=== PATIENT | male | born 1960 | race Caucasian/White ===

== ENCOUNTER 2020-11-22 10:14 | Emergency (ER) | payer BC, SELFPAY ==
[2020-11-22 10:21] VITALS: BP 135/80; PULSE 79; TEMP 36.7; O2SAT 100
--- NOTE | 2020-11-22 10:21 | ED.GENADULT ---
HPI - General Adult General Chief complaint: Wound/Laceration Stated complaint: lt hand index finger laceration Time Seen by Provider: 11/22/20 10:22 Source: patient and RN notes reviewed Mode of arrival: ambulatory Limitations: no limitations History of Present Illness HPI narrative: 60-year-old male presents with complaints of laceration to index (second) finger on left hand, caused by veneer trimmer prior to arrival. Juan C reports outside doing yard work prior to arrive, cut finger causing laceration. Applied dressing and pressure to control bleeding with some relief. Denies focal weakness or altered sensation. Denies pain, numbness or tingling, or loss of mobility. No foreign body sensation. RIGHT HAND dominant hand. No fever. No nausea or vomiting and abdominal pain. Tolerating po intake well. Tetanus up-to-date. The patient reports he have not been diagnosed with COVID-19. The patient reports he is not waiting for the results of a COVID-19 lab test. The patient reports he do not have chills, weakness, or fatigue. The patient reports he do not have a new or worsening cough or shortness of breath. Denies chest pain. The patient reports he do not have any rhinorrhea, congestion, loss of taste or smell, sore throat, and diarrhea. Denies recent traveling. Denies concerns for COVID-19 or exposures been home with limited outdoor exposure except for essential household needs and return home. At this time, patient is not suspected of having COVID-19. Some parts of this dictation were generated by voice recognition software and may contain typographical and/or grammatical inaccuracies Related Data Home Medications Medication Instructions Recorded Confirmed aspirin 81 mg tablet,delayed 81 mg PO DAILY 01/13/20 11/22/20 release multivitamin 1 tablet PO DAILY 01/13/20 11/22/20 omega 8-zmo-ncw-fish oil 100 100 cap PO DAILY 01/13/20 11/22/20 mg-160 mg-1,000 mg capsule empagliflozin [Jardiance] 10 mg PO DAILY 11/22/20 11/22/20 linagliptin [Tradjenta] 5 mg PO DAILY 11/22/20 11/22/20 Allergies Allergy/AdvReac Type Severity Reaction Status Date / Time atorvastatin [From Lipitor] AdvReac Unknown Muscle Pain Verified 11/22/20 10:30 Review of Systems Review of Systems: Narrative: CONSTITUTIONAL: Denies fever, chills, sweats. EYES: Denies visual changes, redness, discharge. ENT: Denies rhinorrhea, congestion, sore throat, otalgia. CARDIOVASCULAR: Denies chest pain, palpitations, edema. RESPIRATORY: Denies dyspnea, wheezing, cough. GASTROINTESTINAL: Denies abdominal pain, nausea, vomiting, or diarrhea. SKIN: Denies rash or itching. Complains of laceration to index (second) finger on left hand. MUSCULOSKELETAL: Denies acute back pain, joint pain, or myalgia. NEUROLOGIC: Denies numbness or focal weakness. PSYCHIATRIC: Denies anxiety or depression. All other systems reviewed & are unremarkable except as noted in HPI and below. [facility] Past Medical History Medical History Arthritis Diabetes Hyperlipemia Surgical History Surgical History Hx of appendectomy Family History Family History Father Heart disease Diabetes mellitus Parkinsons disease Mother Dementia Social History Social History (Updated 11/22/20 @ 11:16 by KALYANI Wyatt) Smoking status: Never smoker Tobacco type: cigarettes Second hand tobacco smoke exposure: No Alcohol intake: former Substance use: never Substance use type: does not use Living arrangements: with family Additional living arrangements comments: spouse Occupation/Education: retired Gender identity (if verbalized by the patient): Male Sexual Orientation (if Verbalized by the Patient): Straight or Heterosexual Comments At time of signature, agree with nurse past medical,
[2020-11-22 10:34] VITALS: BP 135/80; PULSE 79; TEMP 36.7; O2SAT 100
== END 2020-11-22 11:02 | disposition home or self-care (01) ==
PROVIDERS: Emergency Provider Nurse Practitioner Family; PCP Internal Medicine
DX: S61.211A Laceration without foreign body of left index finger without damage to nail, initial encounter (principal); W29.3XXA Contact with powered garden and outdoor hand tools and machinery, initial encounter; Y93.H9 Activity, other involving exterior property and land maintenance, building and construction; E11.9 Type 2 diabetes mellitus without complications; E78.5 Hyperlipidemia, unspecified; M19.90 Unspecified osteoarthritis, unspecified site; Z79.82 Long term (current) use of aspirin
CPT/HCPCS: 12001; 99213; G0463

== ENCOUNTER 2021-11-07 20:37 | Emergency (ER) | payer BC, SELFPAY ==
[2021-11-07 20:40] VITALS: BP 163/98; PULSE 81; RESP 20; TEMP 36.7; O2SAT 100
--- NOTE | 2021-11-07 22:36 | PC.NURSE ---
pt aox3 states I am going to call my doctor in the am .
== END 2021-11-07 22:36 | disposition left against medical advice (07) ==
LOC: ANHED 22:43
PROVIDERS: PCP Internal Medicine
DX: M54.50 Low back pain, unspecified (principal)
CPT/HCPCS: 99199

== ENCOUNTER 2021-11-08 10:03 | Emergency (ER) | payer BC, SELFPAY ==
[2021-11-08 10:07] VITALS: BP 148/84; PULSE 94; RESP 16; TEMP 36.6; O2SAT 99
--- NOTE | 2021-11-08 10:08 | ED.BACK ---
HPI - Back Pain/Injury General Chief Complaint: Back Pain/Injury Stated Complaint: BACK PAIN Time Seen by Provider: 11/08/21 10:09 Source: patient Mode of arrival: ambulatory Limitations: no limitations History of Present Illness HPI Narrative: 61 yo M presents with c/o low back pain, worse to L side. Pain started yesterday while working on hardwood floors. Is remodeling a old house doing carpentry, plumbing, electrical. ambulatory with steady gait. has been taking ibuprofen for pain. States he is not able to get comfortable sitting or laying. no radiation of pain to legs. no weaknes or numbness to LEs. No loss of bowel or bladder. denies injury. All systems reviewed and negative except as noted above. Related Data Home Medications Medication Instructions Recorded Confirmed aspirin 81 mg tablet,delayed 81 mg PO DAILY 01/13/20 10/31/21 release multivitamin 1 tablet PO DAILY 01/13/20 10/31/21 omega 5-ktm-udw-fish oil 100 100 cap PO DAILY 01/13/20 10/31/21 mg-160 mg-1,000 mg capsule ibuprofen 200 mg capsule 200 mg PO Q6H PRN 10/31/21 10/31/21 Allergies Allergy/AdvReac Type Severity Reaction Status Date / Time atorvastatin [From Lipitor] AdvReac Unknown Muscle Pain Verified 11/07/21 20:44 Review of Systems Review of Systems: CONSTITUTIONAL: Denies fever, chills, or sweats. EYES: Denies visual changes, redness, or discharge. ENT: Denies rhinorrhea, congestion, sore throat, or otalgia. CARDIOVASCULAR: Denies chest pain, palpitations, or edema. RESPIRATORY: Denies cough or dyspnea. GASTROINTESTINAL: Denies abdominal pain, nausea, vomiting, or diarrhea. GENITOURINARY: Denies dysuria or hematuria. SKIN: Denies rash or itching. MUSCULOSKELETAL: Reports back pain. denies joint pain, or myalgia. NEUROLOGIC: Denies headache, numbness, or weakness. PSYCHIATRIC: Denies anxiety or depression. All other systems reviewed are negative, except as documented in HPI. [facility] Past Medical History Medical History Arthritis Diabetes Hyperlipemia Surgical History Surgical History Hx of appendectomy Family History Family History Father Heart disease Diabetes mellitus Parkinsons disease Mother Dementia Social History Social History Smoking status: Never smoker Tobacco type: cigarettes Second hand tobacco smoke exposure: No Alcohol intake: former Substance use: never Substance use type: does not use Additional living arrangements comments: spouse Gender identity (if verbalized by the patient): Male Sexual Orientation (if Verbalized by the Patient): Straight or Heterosexual Comments At time of signature, agree with nursing past medical, surgical, social and family history. There is no relevant family history pertinent to the presenting complaint. Exam Narrative: GENERAL: Well-appearing, well-nourished, and in no acute distress. HEAD: Normocephalic, atraumatic. EYES: PERRLA and EOMI. NECK: Supple. No lymphadenopathy. CHEST: Clear to auscultation. No respiratory distress. HEART: Regular rate and rhythm. Distal pulses palpable and equal, cap refill <3 seconds ABDOMEN: Soft, nontender, nondistended, normal active bowel sounds, no palpable or pulsatile masses. No CVA tenderness MUSCULOSKELETAL: Decreased flexion otherwise normal range of motion. strength in all extremities; 5/5 strength with hip flexion and extension, dorsiflexion and extension, knee flexion and extension, plantar flexion and extension. Normal sensation in dermatomal distributions with sensitivity to light touch and pain. Lumbar midline back tenderness to palpation. Bilateral paraspinal tenderness. Transfers from lying to sitting to standing. SKIN: Warm, dry, no rash. No ecchymosis, erythema, open wounds to back. NEURO: No fo
[2021-11-08] MEDS: KETOROLAC 30 MG/ML VIAL (*BKC) IM (10:34)
== END 2021-11-08 10:55 | disposition home or self-care (01) ==
PROVIDERS: Emergency Provider Nurse Practitioner Family; PCP Internal Medicine
DX: S39.012A Strain of muscle, fascia and tendon of lower back, initial encounter (principal); X58.XXXA Exposure to other specified factors, initial encounter; M19.90 Unspecified osteoarthritis, unspecified site; E11.9 Type 2 diabetes mellitus without complications; E78.5 Hyperlipidemia, unspecified
CPT/HCPCS: 96372; 99213; G0463; J1885

== ENCOUNTER 2022-10-27 08:31 | Outpatient (CLI) | payer BC, SELFPAY ==
[2022-10-27 19:46] LABS: Basophils Absolute Auto 0.1 K/mm3 (0.0-0.1); Basophils Percent Auto 0.9 % (0.2-1.2); Eosinophils Absolute Auto 0.1 K/mm3 (0-0.3); Eosinophils Percent Auto 1.3 % (0-4.4); Hematocrit 46.6 % (42.0-52.0); Hemoglobin 15.1 g/dL (14.0-18.0); Immature Granulocyte Absolute 0.01 K/mm3 (0.00-0.031); Immature Granulocyte Percent A 0.2 % (0-0.5); Lymphocytes Absolute Auto 1.71 K/mm3 (0.9-3.2); Lymphocytes Percent Auto 31.1 % (18.3-44.2); Mean Corpuscular HGB Conc 32.4 g/dl (32-36); Mean Corpuscular Volume 86.3 fl (80-100); Mean Platelet Volume 9.6 fl (7.4-10.4); Monocytes Absolute Auto 0.3 K/mm3 (0.1-0.6); Neutrophils Absolute Auto 3.3 K/mm3 (1.3-6.7); Neutrophils Percent Auto 60.5 % (45.5-73.1); Platelet Count Result 273 k/mm3 (150-375); Red Cell Distribution Width 13.5 % (11.5-14.5); White Blood Count 5.5 K/mm3 (4.5-10.0)
[2022-10-27 19:48] LABS: Alanine Aminotransferase 27 U/L (6-50); Albumin Level 4.9 g/dL (3.5-5.1); Alkaline Phosphatase 56 U/L (38-126); Anion Gap 9 mmol/L (8-16); Aspartate Amino Transferase 31 U/L (17-59); Bilirubin,Total 0.8 mg/dL (0.2-1.3); Blood Urea Nitrogen 21 mg/dL (9-20); Calcium 9.2 mg/dL (8.4-10.2); Carbon Dioxide 29 mmol/L (22-30); Chloride 100 mmol/L (98-107); Cholesterol 126 mg/dL (0-200); Estimated Glomerular Filt Rate > 60; Glucose 115 mg/dL (65-110); HDL Direct 33 mg/dL; Potassium 4.4 mmol/L (3.4-5.0); Sodium 138 mmol/L (137-145); Triglycerides 135 mg/dL (<150)
[2022-10-27 19:54] LABS: Hemoglobin A1C 6.9 % (<5.7)
[2022-10-27 19:59] LABS: LDL Cholesterol Direct 63 mg/dL
[2022-10-27 20:19] LABS: Prostate Specific Antigen 0.7 ng/mL (< OR = 4.0)
[2022-10-27 20:33] LABS: Creatinine Urine 115.5 mg/dL
[2022-10-27 20:38] LABS: MALB Creatinine Ratio 7.4 mg/g (0-30); Microalbumin Urine Random 8.5 mg/L (0-16.7)
== END 2022-10-27 08:32 | disposition home or self-care (01) ==
LOC: ANHGOSHLAB 08:32
PROVIDERS: PCP Internal Medicine; Visit Provider Internal Medicine
DX: E11.9 Type 2 diabetes mellitus without complications (principal); Z12.5 Encounter for screening for malignant neoplasm of prostate
CPT/HCPCS: 36415; 80053; 80061; 82043; 83036; 84153; 85025; G0103

== ENCOUNTER 2022-11-15 10:41 | Outpatient (CLI) | payer BC, SELFPAY | END 2022-11-15 10:42 | disposition home or self-care (01) | LOC: ANHAUDASC 10:42 | PROVIDERS: PCP Internal Medicine; Visit Provider Internal Medicine | DX: H90.3 Sensorineural hearing loss, bilateral (principal) | CPT/HCPCS: 92557; 92567 ==

== ENCOUNTER 2023-04-30 08:01 | Outpatient (CLI) | payer BC, SELFPAY ==
[2023-04-30 13:27] LABS: Anion Gap 9 mmol/L (8-16); Blood Urea Nitrogen 18 mg/dL (9-20); Calcium 9.3 mg/dL (8.4-10.2); Carbon Dioxide 28 mmol/L (22-30); Chloride 100 mmol/L (98-107); Estimated Glomerular Filt Rate > 60; Glucose 116 mg/dL (65-110); Potassium 4.4 mmol/L (3.4-5.0); Sodium 137 mmol/L (137-145)
== END 2023-04-30 08:02 | disposition home or self-care (01) ==
PROVIDERS: PCP Internal Medicine; Visit Provider Internal Medicine
DX: E11.9 Type 2 diabetes mellitus without complications (principal)
CPT/HCPCS: 36415; 80048; 83036

== ENCOUNTER 2023-07-31 09:33 | Outpatient (CLI) | payer BC, SELFPAY ==
[2023-07-31 18:43] LABS: Hematocrit 47.2 % (42.0-52.0); Hemoglobin 15.2 g/dL (14.0-18.0); Mean Corpuscular HGB Conc 32.2 g/dl (32-36); Mean Corpuscular Hemoglobin 28.2 pg (26-34); Mean Corpuscular Volume 87.6 fl (80-100); Mean Platelet Volume 9.6 fl (7.4-10.4); Platelet Count Result 281 k/mm3 (150-375); Red Blood Count 5.39 M/mm3 (4.6-6.20); Red Cell Distribution Width 14.4 % (11.5-14.5); White Blood Count 6.1 K/mm3 (4.5-10.0)
[2023-07-31 19:47] LABS: Hemoglobin A1C 6.9 % (<5.7)
== END 2023-07-31 09:34 | disposition home or self-care (01) ==
LOC: ANHGOSHLAB 09:35
PROVIDERS: PCP Internal Medicine; Visit Provider Clinical Nurse Specialist
DX: E11.9 Type 2 diabetes mellitus without complications (principal)
CPT/HCPCS: 36415; 83036; 85027

== ENCOUNTER 2023-11-12 09:32 | Emergency (ER) | payer BC, SELFPAY ==
[2023-11-12 10:13] VITALS: BP 127/84; PULSE 92; RESP 16; TEMP 36.4; O2SAT 98
--- NOTE | 2023-11-12 10:52 | ED.BACK ---
HPI - Back Pain/Injury General Chief Complaint: Extremity Injury, Lower Stated Complaint: Right Hip pain Time Seen by Provider: 11/12/23 10:37 Source: patient, family () and RN notes reviewed Mode of arrival: ambulatory Limitations: no limitations History of Present Illness HPI Narrative: Patient presents today complaining of a 6 day history of pain to the right lower back extending to the right thigh. Denies numbness or tingling in the leg or genitalia. Denies loss of bowel or bladder control. Currently rates his pain at rest 3/10, which increases with standing or ambulation. He has been taking ibuprofen with some short-term relief. Denies any known injury or trauma, but has been working in his home renovating it. Woke up with the pain after lifting some heavy doors at home. Related Data Home Medications Medication Instructions Recorded Confirmed aspirin 81 mg tablet,delayed 81 mg PO DAILY 01/13/20 11/12/23 release (Adult Low Dose Aspirin) multivitamin 1 tablet PO DAILY 01/13/20 11/12/23 omega 5-xnz-wgu-fish oil 100 100 cap PO DAILY 01/13/20 11/12/23 mg-160 mg-1,000 mg capsule (Fish Oil) ibuprofen 200 mg capsule 200 mg PO Q6H PRN Pain 10/31/21 11/12/23 Allergies Allergy/AdvReac Type Severity Reaction Status Date / Time atorvastatin [From Lipitor] AdvReac Unknown Muscle Pain Verified 11/12/23 10:09 Review of Systems Review of Systems: CONSTITUTIONAL: Denies body aches, fever, chills, or sweats. EYES: Denies visual changes, redness, or discharge. ENT: Denies rhinorrhea, congestion, sore throat, or otalgia. CARDIOVASCULAR: Denies chest pain, palpitations, or edema. RESPIRATORY: Denies cough or dyspnea. GASTROINTESTINAL: Denies abdominal pain, nausea, vomiting, or diarrhea. GENITOURINARY: Denies dysuria or hematuria. SKIN: Denies rash, itching, or wounds. MUSCULOSKELETAL: Denies joint pain, or myalgia.+ back pain NEUROLOGIC: Denies headache, numbness, tingling, or weakness. PSYCH: Denies depression or anxiety. COUNT INCLUDES [facility] Past Medical History Medical History Arthritis Diabetes Hyperlipemia Surgical History Surgical History Hx of appendectomy Family History Family History Father Heart disease Diabetes mellitus Parkinsons disease Mother Dementia Social History Social History Smoking status: Never smoker Tobacco type: cigarettes Second hand tobacco smoke exposure: No Alcohol intake: former Substance use: never Substance use type: does not use Lack of Transportation: No Lack of Food: Never True Current Housing: I Have Housing Concerned About Future Housing: No Difficulty Paying Gas/Electric Bills: No Difficulty Paying for Meds: No Currently Unemployed: Decline to Answer Education: Trade/Vocational Certificate Difficulty w/ Childcare or Family Care: No Living arrangements: with family Additional living arrangements comments: spouse Occupation/Education: retired Gender identity (if verbalized by the patient): Male Sexual Orientation (if Verbalized by the Patient): Straight or Heterosexual Comments At time of signature, I have reviewed and agree with nursing past medical, surgical, social and family history unless otherwise noted. Please see nursing chart for further information. There is no relevant family history pertinent to the presenting complaint Exam Narrative: GENERAL: Well-appearing, well-nourished, and in no acute distress. HEAD: Normocephalic, atraumatic. EYES: EOMI. No redness or drainage. Conjunctivae normal. ENT: Mucous membranes pink and moist. NECK: Normal AROM. CHEST: No respiratory distress. MUSCULOSKELETAL: No bony tenderness of the spine. Tenderness to the right lower lumbar
== END 2023-11-12 11:02 | disposition home or self-care (01) ==
PROVIDERS: Emergency Provider Nurse Practitioner; PCP Internal Medicine
DX: M54.41 Lumbago with sciatica, right side (principal); M19.90 Unspecified osteoarthritis, unspecified site; E11.9 Type 2 diabetes mellitus without complications; E78.5 Hyperlipidemia, unspecified; Z79.82 Long term (current) use of aspirin
CPT/HCPCS: 99213; G0463

== ENCOUNTER 2023-11-17 19:48 | Emergency (ER) | payer BC, SELFPAY ==
--- NOTE | ~2023-11-17 | XR_ITS ---
EXAM: XR knee RT min 4V DATE: 11/17/2023 20:08 HISTORY: pain . COMPARISON: None available. FINDINGS: Normal mineralization. No fracture or dislocation. No lytic or blastic lesion. Mild degene rative change in the medial and patellofemoral compartments. No erosion or periosteal change. Atheros clerotic vascular calcifications. IMPRESSION: No acute osseous finding in the right knee. Reviewed, dictated and finalized at location K. AIGN MARKETING MANAGER
--- NOTE | ~2023-11-17 | XR_ITS ---
EXAM: XR hip RT 2V w AP pelvis DATE: 11/17/2023 20:08 HISTORY: pain . COMPARISON: None available. FINDINGS: Normal mineralization. No fracture or dislocation. No lytic or blastic lesion. Mild bilate ral hip osteoarthritis and pelvic enthesopathy. No erosion or periosteal change. Soft tissues within normal limits. IMPRESSION: No acute osseous finding in the pelvis or right hip. Reviewed, dictated and finalized at location K. CE DETENTION ATTENDANT
[2023-11-17 19:48] VITALS: BP 130/76; PULSE 98; RESP 18; TEMP 36.4; O2SAT 100
--- NOTE | 2023-11-17 20:33 | ED.GENADULT ---
HPI - General Adult General Chief complaint: Extremity Problem,Nontraumatic Stated complaint: R hip/R knee pain Time Seen by Provider: 11/17/23 20:30 Source: patient Mode of arrival: ambulatory Limitations: no limitations History of Present Illness HPI narrative: This is a 63-year-old male who presents to the ED with chief complaint of nearly 2 weeks of right hip and knee pain. Patient states that he had been working around the house a lot prior to this onset. No specific trauma. Pain seems to be radiating from the right low back to the outside of the right hip and right knee. He had been seen previously in urgent care thought he may have some sciatica. He has been taking Flexeril, steroids and ibuprofen with mild relief but today the pain got worse. Denies numbness, weakness, bladder or bowel dysfunction, saddle anesthesia, fevers, chills. Related Data Home Medications Medication Instructions Recorded Confirmed aspirin 81 mg tablet,delayed 81 mg PO DAILY 01/13/20 11/12/23 release (Adult Low Dose Aspirin) multivitamin 1 tablet PO DAILY 01/13/20 11/12/23 omega 4-avy-bdo-fish oil 100 100 cap PO DAILY 01/13/20 11/12/23 mg-160 mg-1,000 mg capsule (Fish Oil) ibuprofen 200 mg capsule 200 mg PO Q6H PRN Pain 10/31/21 11/12/23 Allergies Allergy/AdvReac Type Severity Reaction Status Date / Time atorvastatin [From Lipitor] AdvReac Unknown Muscle Pain Verified 11/12/23 10:09 Review of Systems Review of Systems: All systems as dictated in HPI [facility] Past Medical History Medical History Arthritis Diabetes Hyperlipemia Surgical History Surgical History Hx of appendectomy Family History Family History Father Heart disease Diabetes mellitus Parkinsons disease Mother Dementia Social History Social History Smoking status: Never smoker Tobacco type: cigarettes Second hand tobacco smoke exposure: No Alcohol intake: former Substance use: never Substance use type: does not use Lack of Transportation: No Lack of Food: Never True Current Housing: I Have Housing Concerned About Future Housing: No Difficulty Paying Gas/Electric Bills: No Difficulty Paying for Meds: No Currently Unemployed: Decline to Answer Education: Trade/Vocational Certificate Difficulty w/ Childcare or Family Care: No Living arrangements: with family Additional living arrangements comments: spouse Occupation/Education: retired Gender identity (if verbalized by the patient): Male Sexual Orientation (if Verbalized by the Patient): Straight or Heterosexual Exam Narrative: GENERAL: Well-appearing, well-nourished, and in no acute distress. HEAD: Normocephalic, atraumatic. EYES: PERRLA and EOMI. ENT: Nares clear, no rhinorrhea or epistaxis. Mucous membranes moist. Oropharynx without tonsillar hypertrophy exudate or other lesions. NECK: Supple. No adenopathy or masses. CHEST: No respiratory distress. Clear to auscultation. No wheezes rales or rhonchi HEART: Regular rate and rhythm. No murmur heard. Normal peripheral pulses. ABDOMEN: Soft, nontender, nondistended, normal active bowel sounds. MSK: No midline spinal tenderness. Straight leg raise positive on the right. Ambulatory. normal range of motion. No edema. SKIN: Warm, dry, no rash. NEURO: Alert and oriented x3. No focal deficits. No saddle anesthesia. 5 out of 5 strength and sensation in the upper and lower extremities. PSYCH: Normal mood and affect. Course Vital Signs Vital signs: Vital Signs Temperature 97.5 F L 11/17/23 19:48 Pulse Rate 98 11/17/23 19:48 Respiratory Rate 18 11/17/23 19:48 Blood Pressure 130/76 11/17/23 19:48 Pulse Oximetry 100 11/17/23 19:48 Oxygen D
[2023-11-17] MEDS: ACETAMINOPHEN 500 MG TABLET 1000 MG PO (20:56)
[2023-11-17] MEDS: ORPHENADRINE CITRATE 100 MG TABLET.ER PO (20:57)
[2023-11-17] MEDS: KETOROLAC 30 MG/ML VIAL (*BKC) IM (20:57)
[2023-11-17 21:32] VITALS: BP 142/76; PULSE 82; RESP 15; O2SAT 100
== END 2023-11-17 21:33 | disposition home or self-care (01) ==
PROVIDERS: Emergency Provider Physician Assistant; PCP Internal Medicine
DX: M54.16 Radiculopathy, lumbar region (principal); E11.9 Type 2 diabetes mellitus without complications; E78.5 Hyperlipidemia, unspecified; M19.90 Unspecified osteoarthritis, unspecified site; Z79.82 Long term (current) use of aspirin; Z79.84 Long term (current) use of oral hypoglycemic drugs
CPT/HCPCS: 73502; 73564; 96372; 99284; A9270; J1885

== ENCOUNTER 2023-12-04 08:01 | Outpatient (CLI) | payer BC, SELFPAY ==
[2023-12-04 14:00] LABS: Creatinine Urine 93.4 mg/dL
[2023-12-04 14:06] LABS: MALB Creatinine Ratio 26.8 mg/g (0-30)
[2023-12-04 14:39] LABS: Cholesterol 150 mg/dL (0-200); HDL Direct 38 mg/dL; Triglycerides 108 mg/dL (<150)
[2023-12-04 14:44] LABS: Alanine Aminotransferase 26 U/L (6-50); Albumin Level 4.5 g/dL (3.5-5.1); Alkaline Phosphatase 76 U/L (38-126); Anion Gap 10 mmol/L (8-16); Aspartate Amino Transferase 43 U/L (17-59); Bilirubin,Total 0.4 mg/dL (0.2-1.3); Blood Urea Nitrogen 26 mg/dL (9-20); Calcium 9.6 mg/dL (8.4-10.2); Carbon Dioxide 25 mmol/L (22-30); Chloride 103 mmol/L (98-107); Estimated Glomerular Filt Rate > 60; Glucose 170 mg/dL (65-110); Potassium 4.4 mmol/L (3.4-5.0); Sodium 138 mmol/L (137-145)
[2023-12-04 14:49] LABS: LDL Cholesterol Direct 87 mg/dL
[2023-12-04 15:10] LABS: Prostate Specific Antigen 0.7 ng/mL (< OR = 4.0)
[2023-12-04 16:33] LABS: Hemoglobin A1C 8.1 % (<5.7)
== END 2023-12-04 08:02 | disposition home or self-care (01) ==
LOC: ANHGOSHLAB 08:03
PROVIDERS: PCP Internal Medicine; Visit Provider Clinical Nurse Specialist
DX: E11.65 Type 2 diabetes mellitus with hyperglycemia (principal); Z12.5 Encounter for screening for malignant neoplasm of prostate; E78.5 Hyperlipidemia, unspecified
CPT/HCPCS: 36415; 80053; 80061; 82043; 82607; 83036; 84153; G0103

== ENCOUNTER 2024-04-09 08:13 | Outpatient (CLI) | payer BC, SELFPAY ==
[2024-04-09 19:21] LABS: Basophils Percent Auto 0.4 % (0.2-1.2); Eosinophils Absolute Auto 0.2 K/mm3 (0-0.3); Eosinophils Percent Auto 2.3 % (0-4.4); Hematocrit 43.6 % (42.0-52.0); Hemoglobin 13.1 g/dL (14.0-18.0); Immature Granulocyte Absolute 0.04 K/mm3 (0.00-0.031); Immature Granulocyte Percent A 0.4 % (0-0.5); Lymphocytes Absolute Auto 1.07 K/mm3 (0.9-3.2); Lymphocytes Percent Auto 10.6 % (18.3-44.2); Mean Corpuscular Hemoglobin 25.7 pg (26-34); Mean Corpuscular Volume 85.7 fl (80-100); Mean Platelet Volume 9.8 fl (7.4-10.4); Monocytes Absolute Auto 1.4 K/mm3 (0.1-0.6); Monocytes Percent Auto 13.9 % (2.6-8.5); Neutrophils Absolute Auto 7.3 K/mm3 (1.3-6.7); Neutrophils Percent Auto 72.4 % (45.5-73.1); Platelet Count Result 326 k/mm3 (150-375); Red Blood Count 5.09 M/mm3 (4.6-6.20); Red Cell Distribution Width 13.8 % (11.5-14.5); White Blood Count 10.1 K/mm3 (4.5-10.0)
[2024-04-09 19:31] LABS: Alanine Aminotransferase 79 U/L (6-50); Albumin Level 3.6 g/dL (3.5-5.1); Alkaline Phosphatase 146 U/L (38-126); Anion Gap 13 mmol/L (4-12); Aspartate Amino Transferase 115 U/L (17-59); Bilirubin,Total 0.6 mg/dL (0.2-1.3); Blood Urea Nitrogen 19 mg/dL (9-20); Carbon Dioxide 26 mmol/L (22-30); Chloride 95 mmol/L (98-107); Cholesterol 91 mg/dL (0-200); Estimated Glomerular Filt Rate > 60; Glucose 91 mg/dL (65-110); HDL Direct 20 mg/dL; Sodium 134 mmol/L (137-145); Triglycerides 80 mg/dL (<150)
[2024-04-09 19:42] LABS: LDL Cholesterol Direct 49 mg/dL
[2024-04-09 20:23] LABS: Vitamin B12 > 1000.0 pg/mL (239-931)
[2024-04-09 20:39] LABS: Hemoglobin A1C 7.4 % (<5.7)
[2024-04-09 20:47] LABS: Creatinine Urine 175.2 mg/dL
[2024-04-09 20:50] LABS: MALB Creatinine Ratio 84.2 mg/g (0-30); Microalbumin Urine Random 147.6 mg/L (0-16.7)
== END 2024-04-09 08:14 | disposition home or self-care (01) ==
LOC: ANHGOSHLAB 08:15
PROVIDERS: PCP Internal Medicine; Visit Provider Internal Medicine
DX: E11.65 Type 2 diabetes mellitus with hyperglycemia (principal)
CPT/HCPCS: 36415; 80053; 80061; 82043; 82565; 82607; 83036; 85025

== ENCOUNTER 2024-04-15 09:27 | Inpatient (IN) | payer BC, MEDICARE, SELFPAY ==
[2024-04-15] VITALS (32 sets, daily range): BP systolic 121–150; BP diastolic 72–113; PULSE 90–106; RESP 18–35; TEMP 36.4–37.3; O2SAT 95–100
--- NOTE | ~2024-04-15 | US_ITS ---
EXAMINATION: US venous doppler [facility] DATE: 04/16/2024 11:13 INDICATION: Chest pain. TECHNIQUE: Grayscale ultrasound images without and with compression and Doppler ultrasound images of the bilateral lower extremity veins were obtained. COMPARISON: None. FINDINGS: The visualized portions of right common femoral vein, profunda (deep) femoral vein, femoral vein, pop liteal vein, peroneal veins, posterior tibial veins, and greater saphenous vein outflow are patent. The visualized portions of left common femoral vein, profunda femoral vein, femoral vein, popliteal v ein, peroneal veins, posterior tibial veins, and greater saphenous vein outflow are patent. IMPRESSION: 1. No deep venous thrombosis. Reviewed, dictated and finalized at location A.
--- NOTE | ~2024-04-15 | US_ITS ---
EXAMINATION: US abdomen duplex complete DATE: 04/19/2024 08:46 INDICATION: Abdominal distention. Hypotension. Lower extremity edema. TECHNIQUE: Multiple grayscale and color and pulsed Doppler ultrasound images of the abdomen were obta ined. COMPARISON: CT abdomen and pelvis 04/15/2024 FINDINGS: There are innumerable hypoechoic masses in the liver, consistent with metastatic disease. T here is normal flow in the proper hepatic artery, main portal vein, right and left portal veins, and the hepatic veins. Review of the CT demonstrates portal vein thrombosis in segment V of the liver. Th ere is normal flow in splenic artery and splenic vein. Abdominal aorta is normal in caliber. There is a small volume of ascites. IMPRESSION: 1. Innumerable liver masses, consistent with metastatic disease. 2. Portal vein thrombosis in segment V of the liver. Reviewed, dictated and finalized at location A.
--- NOTE | ~2024-04-15 | CT_ITS ---
EXAMINATION: CTA chest PE abdomen pel DATE: 04/15/2024 11:50 INDICATION: Right chest pain. Right upper quadrant abdominal pain. TECHNIQUE: Computed tomography angiography (CTA) of the chest was performed with 100 mL Omnipaque-350 intravenous contrast timed to evaluate the pulmonary arteries. Coronal maximum intensity projection 3D-reconstructions were created by the technologist. Computed tomography (CT) of the abdomen and pelv is was performed with intravenous contrast. Automated exposure control and iterative reconstruction t echnique were employed. The dose-length product was 1243.31 mGy-cm. COMPARISON: None. FINDINGS: CTA chest: The lung volumes are small. The lungs demonstrate mild atelectasis. There are few nodules in the lungs measuring up to 3 mm. No pleural effusion. The heart size is normal. There are coronary artery calcifications. No pericardial effusion. There is no pulmonary embolus. There is mild mediasti nal lymphadenopathy. There is no pulmonary embolus. There is a chronic compression fracture of T11. T here is mild thoracic spondylosis. CT abdomen and pelvis: There are greater than 20 low attenuation masses in the liver measuring up to 14.2 cm. The gallbladder is normal. There is an infarct in the spleen. There is a 4.4 cm hypodense ma ss in the tail of the pancreas. The adrenal glands are normal. There are cysts in the kidneys measuri ng up to 14 mm on the right. There is a right inguinal hernia containing fat. There is diverticulosis of the colon without evidence of diverticulitis. The appendix is not visualized. There is mild perip ortal lymphadenopathy. There is a small volume of ascites. There is mild lumbar spondylosis. IMPRESSION: 1. 4.4 cm pancreatic mass, consistent with primary adenocarcinoma. 2. Greater than 20 liver masses, consistent with metastatic disease. 3. Small pulmonary nodules and mild mediastinal lymphadenopathy, which may be benign or metastatic di sease. 4. Small volume of ascites. 5. Splenic infarct. 6. No pulmonary embolus. Reviewed, dictated and finalized at location A. IMPRESSION: 1. 4.4 cm pancreatic mass, consistent with primary adenocarcinoma. 2. Greater than 20 liver masses, consistent with metastatic disease. 3. Small pulmonary nodules and mild mediastinal lymphadenopathy, which may be b enign or metastatic disease. 4. Small volume of ascites. 5. Splenic infarct. 6. No pulmonary embolus.
--- NOTE | ~2024-04-15 | XR_ITS ---
EXAMINATION: XR fl guide central line place DATE: 04/21/2024 12:58 INDICATION: Port placement. TECHNIQUE: A single intraoperative fluoroscopic view of the chest was obtained. I was not present. Fl uoroscopy time was 319 seconds. COMPARISON: Chest CT 04/15/2024 FINDINGS: There is a right internal jugular port with tip at superior cavoatrial junction. IMPRESSION: 1. Port tip at superior cavoatrial junction. Reviewed, dictated and finalized at location A.
--- NOTE | ~2024-04-15 | US_ITS ---
EXAMINATION: US bx liver DATE: 04/16/2024 11:43 INDICATION: Liver mass. TECHNIQUE: The procedure including the risks, benefits, and alternatives was discussed with the patie nt. Risks discussed included bleeding and infection. The patient understood the risks and agreed to p roceed. The skin overlying the left hepatic lobe was prepped and draped in usual sterile fashion. An esthetic was administered with 1% lidocaine subcutaneously. An 18 gauge core biopsy needle was then used to obtain 3 core biopsy specimens under continuous sonographic guidance. The entry site was kwaku liseth and dressed. There were no immediate complications. FINDINGS: Ultrasound images demonstrate the needle in a 2.6 cm hypoechoic mass in left hepatic lobe. IMPRESSION: 1. Ultrasound-guided core needle biopsy of a mass in left hepatic lobe. Reviewed, dictated and finalized at location A.
--- NOTE | ~2024-04-15 | XR_ITS ---
EXAMINATION: XR chest port-a-cath/central DATE: 04/21/2024 12:58 INDICATION: Port placement. TECHNIQUE: A single frontal view of the chest was obtained. COMPARISON: CT chest 04/15/2024 FINDINGS: The lung volumes are small. There are mild atelectasis at the lung bases. No pleural effusi on or pneumothorax. The heart size is normal. There is a right internal jugular port with tip at supe rior cavoatrial junction. IMPRESSION: 1. Port tip at superior cavoatrial junction. 2. Mild atelectasis at the lung bases. Reviewed, dictated and finalized at location A.
--- NOTE | 2024-04-15 09:33 | ECG_ITS ---
Test Date: 2024-04-15 09:50:58 Measurements Intervals [place] Rate: 90 P: 47 MD: 164 QRS: -28 QRSD: 82 T: 2 QT: 346 QTc: 425 Interpretive Statements SINUS RHYTHM DELAYED PRECORDIAL R/S TRANSITION INFERIOR INFARCT, AGE INDETERMINATE BASELINE ARTIFACT- I, II, III, AVR, AVL, AVF ABNORMAL ECG No previous ECG available for comparison Electronically Signed On 04-15-2024 10:22:45 CDT by Jason Walton D.O.
[2024-04-15 10:01] LABS: Basophils Percent Auto 0.2 % (0.2-1.2); Eosinophils Absolute Auto 0.1 K/mm3 (0-0.3); Eosinophils Percent Auto 0.5 % (0-4.4); Hemoglobin 12.9 g/dL (14.0-18.0); Immature Granulocyte Absolute 0.07 K/mm3 (0.00-0.031); Immature Granulocyte Percent A 0.5 % (0-0.5); Lymphocytes Absolute Auto 0.81 K/mm3 (0.9-3.2); Lymphocytes Percent Auto 6.1 % (18.3-44.2); Mean Corpuscular HGB Conc 32.3 g/dl (32-36); Mean Corpuscular Hemoglobin 26.4 pg (26-34); Mean Corpuscular Volume 81.8 fl (80-100); Monocytes Absolute Auto 1.4 K/mm3 (0.1-0.6); Monocytes Percent Auto 10.6 % (2.6-8.5); Neutrophils Percent Auto 82.1 % (45.5-73.1); Platelet Count Result 256 k/mm3 (150-375); Red Blood Count 4.89 M/mm3 (4.6-6.20); Red Cell Distribution Width 14.4 % (11.5-14.5); White Blood Count 13.4 K/mm3 (4.5-10.0)
--- NOTE | 2024-04-15 10:01 | ED.ABDPAIN ---
HPI - Abdominal Pain General Chief Complaint: Abdominal Pain Stated Complaint: Abd pain Time Seen by Provider: 04/15/24 09:32 Source: patient and old records reviewed Mode of arrival: ambulatory Limitations: no limitations History of Present Illness HPI narrative: Patient is a 63-year-old male who presents the ED from Dr. Helms's office with report of right upper abdominal pain. Patient reports he has had fairly constant pain in his right upper/lateral abdomen for the last 1.5 weeks. Denies aggravating factors. Denies worsening of pain with eating, though he does report a significant decreased appetite. He is able to find some relief of the pain with lying still and flat, has been taking ibuprofen for the pain with minimal relief. He reports nausea, denies vomiting. Reports intermittent fevers up to 106 degree F. Denies diarrhea, constipation, urinary complaints, chest pain, shortness of breath, pleuritic pain. Patient has recently been on Ozempic for weight loss. Does report 24 lb weight loss in the last few weeks. Related Data Home Medications Medication Instructions Recorded Confirmed aspirin 81 mg tablet,delayed 81 mg PO DAILY 01/13/20 04/15/24 release (Adult Low Dose Aspirin) ibuprofen 200 mg capsule 200 mg PO Q6H PRN Pain 10/31/21 04/15/24 metformin 750 mg tablet,extended 750 mg PO BID 04/15/24 04/15/24 release 24 hr rosuvastatin 40 mg tablet 40 mg PO HS 04/15/24 04/15/24 Allergies Allergy/AdvReac Type Severity Reaction Status Date / Time atorvastatin [From Lipitor] AdvReac Unknown Muscle Pain Verified 04/15/24 09:53 Review of Systems Review of Systems: CONSTITUTIONAL: See HPI. CARDIOVASCULAR: Denies chest pain, palpitations, or edema. RESPIRATORY: Denies cough or dyspnea. GASTROINTESTINAL: See HPI. GENITOURINARY: Denies dysuria or hematuria. MUSCULOSKELETAL: Denies back pain, extremity pain, myalgia. All systems reviewed & are unremarkable except as noted in HPI and below PMFSH Past Medical History Medical History Arthritis B12 deficiency Diabetes Diabetes mellitus with hyperglycemia Hyperlipemia Surgical History Surgical History Hx of appendectomy Family History Family History Father Heart disease Diabetes mellitus Parkinsons disease Mother Dementia Social History Social History Social History: Surrogate medical decision maker: Code status: Full code. Smoking status: Never smoker Tobacco type: cigarettes Second hand tobacco smoke exposure: Yes (second hand smoke for 20 years) Alcohol intake: never Substance use: never Substance use type: does not use Do You Feel Safe in your Home?: Yes Lack of Transportation: No Lack of Food: Never True Current Housing: I Have Housing Concerned About Future Housing: No Difficulty Paying Gas/Electric Bills: No Difficulty Paying for Meds: No Currently Unemployed: No Education: Decline to Answer Difficulty w/ Childcare or Family Care: No Living arrangements: with family Additional living arrangements comments: spouse Occupation/Education: retired Spiritual care concerns: No Exam Narrative: GENERAL: Well appearing, well-nourished, non-toxic, in no acute distress. HEAD: Normocephalic, atraumatic. RESPIRATORY: Airway patent, respirations nonlabored. Clear to auscultation bilaterally, no rales, rhonchi, wheezing. No splinting. CARDIOVASCULAR: Borderline tachycardic with regular rhythm without murmurs, rubs, or gallops. ABDOMINAL: Soft, focal tenderness with firm masslike region in right upper abdomen. No other significant tenderness throughout abdomen, nondistended. Normoactive BS. MUSCULOSKELETAL: Moves all extremities. No gross deformities. SKIN: Warm,
[2024-04-15 10:11] LABS: Lactic Acid Reflex 2.3 mmol/L (0.7-2.0)
[2024-04-15 10:12] LABS: Alanine Aminotransferase 117 U/L (6-50); Albumin Level 3.5 g/dL (3.5-5.1); Alkaline Phosphatase 295 U/L (38-126); Anion Gap 13 mmol/L (4-12); Aspartate Amino Transferase 182 U/L (17-59); Bilirubin,Total 0.8 mg/dL (0.2-1.3); Blood Urea Nitrogen 23 mg/dL (9-20); Carbon Dioxide 25 mmol/L (22-30); Chloride 95 mmol/L (98-107); Estimated CRCL calculation 91 ml/min; Estimated Glomerular Filt Rate > 60; Glucose 164 mg/dL (65-110); Lipase 134 U/L (23-300); Potassium 3.7 mmol/L (3.4-5.0); Sodium 133 mmol/L (137-145)
[2024-04-15 10:17] LABS: INR 1.3; Prothrombin Time 16.7 Seconds (11.1-14.7)
[2024-04-15 10:18] LABS: Partial Thromboplastin Time 33.1 Seconds (22.3-36.8)
[2024-04-15 10:34] LABS: Troponin I 0.081 ng/mL (0.000-0.034)
[2024-04-15] MEDS: SODIUM CHLORIDE 0.9% IV 1,000 ML 999 ML IV CONT ×2 (11:05)
[2024-04-15 11:15] LABS: Appearance Urine Clear (Clear); Bacteria Urine None Seen /hpf; Bilirubin Urine Negative (Negative); Blood Urine Trace (Negative); Color Urine Yellow (Yellow); Glucose Urine UA 3+ mg/dL (Negative); Ketones Urine Trace mg/dL (Negative); Leukocyte Esterase Ur Negative LEU/UL (Negative); Nitrate Urine Negative (Negative); Non Pathogenic Casts 0-2; Protein Urine 1+ mg/dL (Negative); RBC Urine 0-2 /hpf (0-2); Specific Grav Ur 1.044 (1.001-1.035); Squamous Epithelial Cell Urine Few /hpf (Few); WBC Urine 0-5 /hpf (0-3)
[2024-04-15 11:15] LABS: D Dimer > 20.00 ug/mL (<0.48)
[2024-04-15 11:19] LABS: Add Urine Microscopic? YES
--- NOTE | 2024-04-15 12:57 | ECG_ITS ---
Test Date: 2024-04-15 13:09:54 Measurements Intervals [place] Rate: 92 P: 45 [place]: 156 QRS: -23 QRSD: 84 T: 6 QT: 340 QTc: 421 Interpretive Statements SINUS RHYTHM BORDERLINE R WAVE PROGRESSION CONSIDER INFERIOR INFARCT, AGE INDETERMINE BASELINE ARTIFACT- I, III, AVL ABNORMAL ECG Compared to ECG 04/15/2024 09:50:58 No significant changes Electronically Signed On 04-15-2024 13:21:15 CDT by Jason Walton D.O.
[2024-04-15 12:58] LABS: Reflex Lactic Acid Yes or No Add Lactic
[2024-04-15] MEDS: ONDANSETRON INJ 4 MG/2 ML VIAL IV PUSH (14:06)
[2024-04-15 14:07] LABS: Lactic Acid 1.6 mmol/L (0.7-2.0)
[2024-04-15] MEDS: MORPHINE SULFATE (*CRX) 4 MG/ML INJ IV PUSH (14:10)
[2024-04-15 14:23] LABS: Troponin I 0.089 ng/mL (0.000-0.034)
--- NOTE | 2024-04-15 15:22 | PC.NURSE ---
patient last ate breakfast around 0630. does not take blood thinners. james in [place] aware
[2024-04-15 16:14] LABS: Troponin I 0.083 ng/mL (0.000-0.034)
--- NOTE | 2024-04-15 17:25 | ADMGEN ---
This patient, Juan C Walton, was admitted to 3 [facility] Surg Room 320-01. Patient/family oriented to hospital policies and general routines including ID bracelet, bed and alarms, visiting hours, pain management, procedures, bathroom and other care routines, personal items, smoking policy, room service/diet, and visiting hours. Information on how to activate the Rapid Response Team has been discussed. Patient/Family are encouraged to report perceived risks to care and to ask questions if they do not understand what they are told or what they should do.
--- NOTE | 2024-04-15 18:00 | PM.IMHP ---
H&P: HPI History of Present Illness Date/Time: 04/15/24 18:00 Chief Complaint: Abdominal pain. Narrative: This is a pleasant 63-year-old male with hypertension, hyperlipidemia, and type 2 diabetes mellitus who presented to the emergency department via private vehicle for evaluation of abdominal pain. The patient provides the following history. He gives a 1-1/2 week history of nonradiating upper right-sided abdominal pain that he has difficulties describing. It has been constant but manageable with ibuprofen. He also complains of nausea, decreased appetite, and loss of energy for nearly which has been going on for about a month. He initially attributed his symptoms to Ozempic which he stopped taking at the beginning of the month however symptoms have persisted. He also endorses an intermittent fever, reporting chills followed by sweats an hour so later. He made an appointment with Dr. Helms today and was referred to the ED for further workup. With further questioning he reports an unintentional 24 lb weight loss in the last month. He denies vomiting, diarrhea, constipation, edema, calf pain, shortness of breath, chest pain, pleuritic pain, palpitations, orthopnea, paroxysmal nocturnal dyspnea, dysphagia, jaundice, pruritus, melena, and hematochezia. In the ED: He has been afebrile since arrival with stable blood pressures. He is tachypneic with an SpO2 in the mid upper 90s on room air. Labs were significant for a WBC count 13.3, hemoglobin 12.9, D-dimer greater than 20, sodium 133, chloride 95, BUN 23, creatinine 0.70, lactic acid 2.3, glucose 164, total bilirubin 0.8, AST 182, ALT 117, alkaline phosphatase 295, lipase 134, troponin 0.081. Urinalysis showed 1+ protein, 3+ glucose, trace ketones, and elevated specific gravity. EKG was read as having a sinus rhythm with borderline R-wave progression and consider inferior infarct age indeterminate. CT of the chest, abdomen, and pelvis showed a 4.4 cm pancreatic mass consistent with primary adenocarcinoma, greater than 20 liver masses consistent with metastatic disease, splenic infarct, small pulmonary nodules and mild mediastinal lymphadenopathy and a small volume of ascites. It was negative for pulmonary embolism. ED provider spoke with hepatobiliary team at [facility] who indicated that he would not be a candidate for surgery given evidence of metastatic disease and they recommended admission for biopsy and oncology consultation. Review of Systems Review of Systems: 12 systems were reviewed and are negative except for as per HPI. [facility] Past Medical History Medical History Arthritis B12 deficiency Hyperlipemia Hypertension Type 2 diabetes mellitus Surgical History Surgical History History of appendectomy Family History Family History Father Heart disease Diabetes mellitus Parkinsons disease Mother Dementia Social History Social History (Updated 04/15/24 @ 22:41 by Lisette Lee PA-C) Social History: Surrogate medical decision maker: Elida Walton, spouse. Code status: Full code. Smoking status: Never smoker Tobacco type: cigarettes Second hand tobacco smoke exposure: Yes (second hand smoke for 20 years) Alcohol intake: never Substance use: never Substance use type: does not use Do You Feel Safe in your Home?: Yes Lack of Transportation: No Lack of Food: Never True Current Housing: I Have Housing Concerned About Future Housing: No Difficulty Paying Gas/Electric Bills: No Difficulty Paying for Meds: No Currently Unemployed: No Education: Decline to Answer Difficulty w/ Childcare or Family Care: No Living arrangements: with family Additional living arrangements comments: Lives with in [place]. He is currently restoring there [address] year old house. Occupation/Educati
[2024-04-15] MEDS: SODIUM CHLORIDE 0.9% IV 1,000 ML 100 ML IV CONT (19:02)
[2024-04-15 20:38] LABS: Glucose Point of Care 151 mg/dl (65-105)
[2024-04-16] VITALS (8 sets, daily range): BP systolic 116–133; BP diastolic 57–76; PULSE 79–95; RESP 16–20; TEMP 36.2–36.8; O2SAT 93–96
[2024-04-16] MEDS: MORPHINE SULFATE (*CRX) 4 MG/ML INJ 2 MG IV PUSH (00:05)
[2024-04-16 06:08] LABS: Hematocrit 37.7 % (42.0-52.0); Hemoglobin 11.8 g/dL (14.0-18.0); Mean Corpuscular HGB Conc 31.3 g/dl (32-36); Mean Corpuscular Hemoglobin 25.8 pg (26-34); Mean Corpuscular Volume 82.5 fl (80-100); Platelet Count Result 245 k/mm3 (150-375); Red Blood Count 4.57 M/mm3 (4.6-6.20); Red Cell Distribution Width 14.7 % (11.5-14.5); White Blood Count 14.9 K/mm3 (4.5-10.0)
[2024-04-16 06:20] LABS: INR 1.4; Partial Thromboplastin Time 34.8 Seconds (22.3-36.8); Prothrombin Time 17.9 Seconds (11.1-14.7)
[2024-04-16 06:27] LABS: Alanine Aminotransferase 114 U/L (6-50); Albumin Level 2.9 g/dL (3.5-5.1); Alkaline Phosphatase 267 U/L (38-126); Anion Gap 14 mmol/L (4-12); Aspartate Amino Transferase 186 U/L (17-59); Bilirubin,Total 0.8 mg/dL (0.2-1.3); Blood Urea Nitrogen 19 mg/dL (9-20); Carbon Dioxide 18 mmol/L (22-30); Chloride 98 mmol/L (98-107); Estimated CRCL calculation 102 ml/min; Estimated Glomerular Filt Rate > 60; Glucose 94 mg/dL (65-110); Magnesium 1.8 mg/dL (1.6-2.3); Potassium 3.9 mmol/L (3.4-5.0); Sodium 130 mmol/L (137-145)
[2024-04-16 06:46] LABS: Iron 20 ug/dL (49-181)
[2024-04-16 06:56] LABS: Percent Iron Saturation 10 % (20-50)
[2024-04-16 07:32] LABS: Glucose Point of Care 97 mg/dl (65-105)
[2024-04-16 07:58] LABS: Folic Acid 11.5 ng/mL (2.76->20); Vitamin B12 > 1000.0 pg/mL (239-931)
[2024-04-16 08:53] LABS: Ferritin > 2000.00 ng/mL (11.1-264)
--- NOTE | 2024-04-16 10:16 | PDONCCN ---
HPI - Date of Consult Date/Time: 04/16/24 18:30 <DebbieClydedidi Hayes - 04/16/24 18:32> 04/16/24 10:16 <Gin Conway - 04/16/24 10:18> Requesting Physician: Too Chatman MD <Clyde Lewis - 04/16/24 18:32> Too Chatman MD <Gin Conway - 04/16/24 10:18> Primary Care Provider: Lester Helms DO <Clyde Lewis - 04/16/24 18:32> Lester Helms DO <Gin Conway - 04/16/24 10:18> - Consult Narrative Reason for consult: Pancreatic Cancer <ManGin - 04/16/24 10:18> Narrative: Juan C Walton is a 63 year old male <DebbieClydedidi Hayes - 04/16/24 18:32> Juan C Walton is a 63 year old male with a past medical history of HTN, HLD, DM, who presented to the ED for worsening abdominal pain for 2 weeks. His abdominal pain started a few months ago after he was put on Ozempic since November. He reports a decreased appetite, fever, chills, night sweats and about a 24lb weight loss. He states these were all side effects of the Ozempic and was not concerned until a few weeks ago when his abdominal pain persisted. CT of the chest, abdomen, and pelvis showed a 4.4 cm pancreatic mass consistent with primary adenocarcinoma, greater than 20 liver masses consistent with metastatic disease, splenic infarct, small pulmonary nodules and mild mediastinal lymphadenopathy and a small volume of ascites. It was negative for pulmonary embolism. 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 He denies any history of services. He reports his grandparents had lung cancer, but he denies any primary self history of cancer. He denies any smoking or etoh use. Labs today are notable for WBC 14.9 Hgb 11.8, Hct 37.7, Plt 245, Iron 20 % sat 10 B12 >1000 <Gin Conway - 04/16/24 10:24> Review of Systems - Review of Systems All systems reviewed & are unremarkable except as noted in HPI and bel <KainmarianoRayGin - 04/16/24 10:24> [facility] Medical History: Medical History (Last Reviewed 04/15/24 @ 22:40 by Lisette Lee PA-C) Arthritis B12 deficiency Hyperlipemia Hypertension Type 2 diabetes mellitus <Clyde LewisRosalinda - 04/16/24 18:32> Medical History (Last Reviewed 04/15/24 @ 22:40 by Lisette Lee PA-C) Arthritis B12 deficiency Hyperlipemia Hypertension Type 2 diabetes mellitus <KainmarianoDonGin - 04/16/24 10:18> Surgical History: Surgical History (Last Reviewed 04/15/24 @ 22:40 by Lisette Lee PA-C) History of appendectomy <DebbieClydeRosalinda - 04/16/24 18:32> Surgical History (Last Reviewed 04/15/24 @ 22:40 by Lisette Lee PA-C) History of appendectomy <Gin Conway - 04/16/24 10:18> Family History: Family History (Last Reviewed 04/15/24 @ 22:40 by Lisette Lee PA-C) Father Heart disease Diabetes mellitus Parkinsons disease Mother Dementia <Clyde LewisRosalinda - 04/16/24 18:32> Family History (Last Reviewed 04/15/24 @ 22:40 by Lisette Lee PA-C) Father Heart disease Diabetes mellitus Parkinsons disease Mother Dementia <KainmarianoGin - 04/16/24 10:18> - Social History Social History: Social History (Last Updated 04/15/24 @ 22:41 by Lisette Lee PA-C) Alcohol Use: Alcohol intake: never Substance Use: Substance use: never Substance use type: does not use Others: Spiritual care concerns: No Living Arrangements: Living arrangements: with family Oppucation/Education: Occupation/Education: retired Smoking Status: Smoking status: Never smoker Tobacco type: cigarettes Second hand tobacco smoke exposure: Yes Second hand tobacco smoke exposure comment: second hand smoke for 20 years Social Determinants of Health: Do You Feel Safe in your Home?: Yes Has the Lack of Tr
[2024-04-16 11:50] LABS: Glucose Point of Care 90 mg/dl (65-105)
[2024-04-16] MEDS: IRON SUCROSE COMPLEX 400 MG, IRON SUCROSE COMPLEX 100 MG in SODIUM CHLORIDE 0.9% IV 250 ML 78.57 MG IVPB (12:53)
--- NOTE | 2024-04-16 15:45 | PM.IMPN ---
Progress Note: A&P Assessment and Plan (1) Anemia: Code(s): D64.9 - Anemia, unspecified Status: Acute (2) Hypertension: Code(s): I10 - Essential (primary) hypertension Status: Acute (3) Dehydration: Code(s): E86.0 - Dehydration Status: Acute (4) Splenic infarct: Code(s): D73.5 - Infarction of spleen Status: Acute (5) Type 2 diabetes mellitus: Code(s): E11.9 - Type 2 diabetes mellitus without complications Status: Acute (6) Pancreatic mass: Code(s): K86.89 - Other specified diseases of pancreas Status: Acute (7) Liver masses: Code(s): R16.0 - Hepatomegaly, not elsewhere classified Status: Acute (8) Elevated troponin: Code(s): R79.89 - Other specified abnormal findings of blood chemistry Status: Acute (9) Transaminitis: Code(s): R74.01 - Elevation of levels of liver transaminase levels Status: Acute (10) Abdominal pain: Qualifiers: Abdominal location: right upper quadrant Qualified Code(s): R10.11 - Right upper quadrant pain Code(s): R10.9 - Unspecified abdominal pain Status: Acute Plan H&P via Lisette Lee PA-C: This is a pleasant 63-year-old male with hypertension, hyperlipidemia, and type 2 diabetes mellitus who presented to the emergency department via private vehicle for evaluation of abdominal pain. The patient provides the following history. He gives a 1-1/2 week history of nonradiating upper right-sided abdominal pain that he has difficulties describing. It has been constant but manageable with ibuprofen. He also complains of nausea, decreased appetite, and loss of energy for nearly which has been going on for about a month. He initially attributed his symptoms to Ozempic which he stopped taking at the beginning of the month however symptoms have persisted. He also endorses an intermittent fever, reporting chills followed by sweats an hour so later. He made an appointment with Dr. Helms today and was referred to the ED for further workup. With further questioning he reports an unintentional 24 lb weight loss in the last month. He denies vomiting, diarrhea, constipation, edema, calf pain, shortness of breath, chest pain, pleuritic pain, palpitations, orthopnea, paroxysmal nocturnal dyspnea, dysphagia, jaundice, pruritus, melena, and hematochezia. In the ED: He has been afebrile since arrival with stable blood pressures. He is tachypneic with an SpO2 in the mid upper 90s on room air. Labs were significant for a WBC count 13.3, hemoglobin 12.9, D-dimer greater than 20, sodium 133, chloride 95, BUN 23, creatinine 0.70, lactic acid 2.3, glucose 164, total bilirubin 0.8, AST 182, ALT 117, alkaline phosphatase 295, lipase 134, troponin 0.081. Urinalysis showed 1+ protein, 3+ glucose, trace ketones, and elevated specific gravity. EKG was read as having a sinus rhythm with borderline R-wave progression and consider inferior infarct age indeterminate. CT of the chest, abdomen, and pelvis showed a 4.4 cm pancreatic mass consistent with primary adenocarcinoma, greater than 20 liver masses consistent with metastatic disease, splenic infarct, small pulmonary nodules and mild mediastinal lymphadenopathy and a small volume of ascites. It was negative for pulmonary embolism. ED provider spoke with hepatobiliary team at [facility] who indicated that he would not be a candidate for surgery given evidence of metastatic disease and they recommended admission for biopsy and oncology consultation. ----- Trend leukocytosis. Check procalcitonin. Liver biopsy of left hepatic lobe mass completed. SCDs only for now. Oncology consultation appreciated. Receiving iron. Monitor hyponatremia and anemia. Hold Ozempic as well. Troponin was checked on admission which peaked. EKG possibly demonstrating old infarcts. Surface echocardiogram completed on 04/16/2024 which demonstrates: 1. Complete two-dimensional, color fl
[2024-04-16] MEDS: FERROUS SULFATE 325 MG TABLET DR PO (17:36)
[2024-04-16 17:54] LABS: Glucose Point of Care 145 mg/dl (65-105)
--- NOTE | 2024-04-16 17:58 | ECHO_ITS ---
Patient Info Name: Juan C Walton Age: 63 years : 1960 Gender: Male Ht: 69 in Wt: 156 lbs BSA: 1.86 m2 HR: 85 bpm BP: 119 / 58 mmHg Heart Rhythm: Sinus Rhythm Technical Quality: Good Exam Date: 04/16/2024 9:45 AM Exam Location: Echo Lab Patient Status: Inpatient Admit Date: 04/15/2024 Staff Ordering Physician: Lisette Lee PA-C Ash Handler: Sofiya Ovalle RDCS Attending Provider: Too Chatman MD Referring Physician: Rosa MANSFIELD; Exam Type: CA echo doppler color flow Study Info Indications - elevated troponin, abn ekg Complete two-dimensional, color flow and Doppler transthoracic echocardiogram is performed. Summary 1. Complete two-dimensional, color flow and Doppler transthoracic echocardiogram is performed. 2. Left ventricular chamber dimension is normal. 3. Left ventricular systolic function is normal, estimated at 65-70%. 4. There is mildly increased left ventricular wall thickness. 5. The left ventricular diastolic function is grade I diastolic dysfunction. 6. Left atrial chamber dimension is mildly enlarged. 7. There is mild aortic valve regurgitation. 8. There is mild aortic valve calcification. 9. There is moderate aortic valve sclerosis. 10. There is mild mitral valve regurgitation. 11. The mitral valve has thickened leaflets. 12. There is mild tricuspid valve regurgitation. Left Ventricle Left ventricular chamber dimension is normal. Left ventricular systolic function is normal, estimated at 65-70%. There is mildly increased left ventricular wall thickness. The left ventricular diastolic function is grade I diastolic dysfunction. Right Ventricle Right ventricular chamber dimension is normal. Right ventricular systolic function is normal. Left Atria Left atrial chamber dimension is mildly enlarged. Right Atria Right atrial chamber dimension is normal. Atrial Septum Intact interatrial septum visualized by color flow imaging. Aortic Valve The aortic valve is probable trileaflet. There is moderate aortic valve sclerosis. There is no aortic valve stenosis. There is mild aortic valve regurgitation. There is mild aortic valve calcification. Pulmonic Valve The pulmonic valve is normal. There is no pulmonic valve stenosis. There is trace pulmonic regurgitation. Mitral Valve The mitral valve has thickened leaflets. There is no mitral valve stenosis. There is mild mitral valve regurgitation. Tricuspid Valve The tricuspid valve leaflets are normal. There is no significant tricuspid valve stenosis. There is mild tricuspid valve regurgitation. No pulmonary hypertension, estimated pulmonary arterial systolic pressure is 33 mmHg. Pericardium/Pleural The pericardium appears normal. There is no pericardial effusion. Inferior Vena Cava Normal inferior vena cava with >50% collapse upon inspiration consistent with normal right atrial pressure, 10 mmHg. Aorta The aortic root size at the sinus of Valsalva is normal. Left Ventricular Outflow Tract Name Value Normal LVOT 2D LVOT Diameter 1.8 cm LVOT Doppler LVOT Peak Velocity 141 cm/s LVOT Peak Gradient 8 mmHg LVOT Mean Gradient
[2024-04-16 21:07] LABS: Glucose Point of Care 163 mg/dl (65-105)
[2024-04-17] VITALS (10 sets, daily range): BP systolic 112–127; BP diastolic 57–70; PULSE 83–105; RESP 13–16; TEMP 36.7–37; O2SAT 96–97
[2024-04-17 06:18] LABS: Basophils Percent Auto 0.3 % (0.2-1.2); Eosinophils Absolute Auto 0.2 K/mm3 (0-0.3); Eosinophils Percent Auto 1.1 % (0-4.4); Hematocrit 37.2 % (42.0-52.0); Hemoglobin 11.8 g/dL (14.0-18.0); Immature Granulocyte Percent A 0.6 % (0-0.5); Lymphocytes Absolute Auto 0.96 K/mm3 (0.9-3.2); Lymphocytes Percent Auto 6.1 % (18.3-44.2); Mean Corpuscular HGB Conc 31.7 g/dl (32-36); Mean Corpuscular Hemoglobin 25.7 pg (26-34); Mean Platelet Volume 9.6 fl (7.4-10.4); Monocytes Percent Auto 12.7 % (2.6-8.5); Neutrophils Absolute Auto 12.5 K/mm3 (1.3-6.7); Neutrophils Percent Auto 79.2 % (45.5-73.1); Platelet Count Result 231 k/mm3 (150-375); Red Blood Count 4.59 M/mm3 (4.6-6.20); Red Cell Distribution Width 14.6 % (11.5-14.5); White Blood Count 15.8 K/mm3 (4.5-10.0)
[2024-04-17 06:29] LABS: Anion Gap 10 mmol/L (4-12); Blood Urea Nitrogen 21 mg/dL (9-20); Calcium 8.2 mg/dL (8.4-10.2); Carbon Dioxide 22 mmol/L (22-30); Chloride 96 mmol/L (98-107); Estimated CRCL calculation 91 ml/min; Estimated Glomerular Filt Rate > 60; Glucose 116 mg/dL (65-110); Magnesium 2.1 mg/dL (1.6-2.3); Potassium 3.8 mmol/L (3.4-5.0); Sodium 128 mmol/L (137-145)
[2024-04-17 07:10] LABS: Procalcitonin 2.7 ng/mL
[2024-04-17 07:52] LABS: Glucose Point of Care 126 mg/dl (65-105)
[2024-04-17] MEDS: FERROUS SULFATE 325 MG TABLET DR PO ×2 (09:08→18:18)
[2024-04-17] MEDS: EMPAGLIFLOZIN 25 MG TABLET PO (09:08)
[2024-04-17] MEDS: LOSARTAN POTASSIUM 25 MG TABLET PO (09:08)
[2024-04-17 09:57] LABS: Basophils Percent Auto 0.1 % (0.2-1.2); Eosinophils Absolute Auto 0.1 K/mm3 (0-0.3); Eosinophils Percent Auto 0.7 % (0-4.4); Hemoglobin 13.3 g/dL (14.0-18.0); Immature Granulocyte Absolute 0.11 K/mm3 (0.00-0.031); Immature Granulocyte Percent A 0.7 % (0-0.5); Lymphocytes Percent Auto 5.3 % (18.3-44.2); Mean Corpuscular HGB Conc 31.7 g/dl (32-36); Mean Corpuscular Hemoglobin 25.8 pg (26-34); Mean Corpuscular Volume 81.6 fl (80-100); Mean Platelet Volume 9.8 fl (7.4-10.4); Monocytes Percent Auto 11.9 % (2.6-8.5); Neutrophils Absolute Auto 13.7 K/mm3 (1.3-6.7); Neutrophils Percent Auto 81.3 % (45.5-73.1); Platelet Count Result 257 k/mm3 (150-375); Red Blood Count 5.15 M/mm3 (4.6-6.20); Red Cell Distribution Width 14.7 % (11.5-14.5); White Blood Count 16.9 K/mm3 (4.5-10.0)
[2024-04-17 10:09] LABS: INR 1.3; Prothrombin Time 16.9 Seconds (11.1-14.7)
[2024-04-17 10:10] LABS: Partial Thromboplastin Time 35.6 Seconds (22.3-36.8)
--- NOTE | 2024-04-17 10:41 | PM.CNGS ---
Assessment and Plan Assessment and plan (1) Pancreatic mass: Code(s): K86.89 - Other specified diseases of pancreas Status: Acute Assessment and Plan: Patient found to have CT evidence of pancreatic mass with liver masses concerning for metastatic pancreatic cancer. Oncology has evaluated the patient and is requesting huey cath placement to initiate chemotherapy, which is the reason for our consultation. The patient has had worsening leukocytosis over the past few days with his WBC count up to 16,900 today. He has been afebrile. His breathing is slightly labored on my exam and he reports chills overnight. The Hospitalist is working up his leukocytosis today to rule out an infectious cause. Blood cultures and urine cultures are ordered for today. Although his leukocytosis could also be related to his metastatic cancer, we will hold off on port placement while undergoing workup for an infection. If he improves and does not appear to have an ongoing infection, bacteremia or developing sepsis, then we could consider proceeding with port placement sometime next week. I went ahead and discussed the details of the procedure, risks, benefits, alternatives, and expected recovery with the patient and his . I answered all their questions. We will follow along peripherally to decide on eventual timing of surgery. (2) Liver masses: Code(s): R16.0 - Hepatomegaly, not elsewhere classified Status: Acute (3) Elevated troponin: Code(s): R79.89 - Other specified abnormal findings of blood chemistry Status: Acute (4) Type 2 diabetes mellitus: Code(s): E11.9 - Type 2 diabetes mellitus without complications Status: Acute (5) Splenic infarct: Code(s): D73.5 - Infarction of spleen Status: Acute (6) Anemia: Code(s): D64.9 - Anemia, unspecified Status: Acute Plan I have discussed the patient's case and plan of care with Dr. Rivas. History of Present Illness Consult details Consult date: 04/17/24 Narrative: This is a 63 year old male with a past medical history of HTN, HLD, DM, who presented to the ED for worsening abdominal pain for 2 weeks. His abdominal pain started a few months ago after starting Ozempic, but it has been persistent and progressive. Workup in the ED showed CT evidence of a 4.4 cm pancreatic mass consistent with primary adenocarcinoma, greater than 20 liver masses consistent with metastatic disease, splenic infarct, small pulmonary nodules and mild mediastinal lymphadenopathy and a small volume of ascites. It was negative for pulmonary embolism. ED provider spoke with hepatobiliary team at [facility] who indicated that he would not be a candidate for surgery given findings of metastatic disease and recommended admission for biopsy and Oncology consultation. He was admitted in this setting and Oncology evaluated the patient. He had an US-guided biopsy of a liver mass and pathology pending, but Oncology is planning to start chemotherapy for metastatic pancreatic cancer. They have consulted our service for huey cath placement and he is now seen on the medical floor. Review of Systems Review of Systems: All systems reviewed & are unremarkable except as noted in HPI and below PMFSH Past Medical History Medical History Arthritis B12 deficiency Hyperlipemia Hypertension Type 2 diabetes mellitus Surgical History Surgical History History of appendectomy Family History Family History Father Heart disease Diabetes mellitus Parkinsons disease Mother Dementia Social History Social History Social History: Surrogate medical decision maker: Elida Anton, spouse. Code status: Full code. Smoking status: Never smoker Tobacco type: cigarettes
[2024-04-17 11:49] LABS: Glucose Point of Care 217 mg/dl (65-105)
[2024-04-17] MEDS: ENOXAPARIN 40 MG/0.4 ML SYRINGE SUB-Q (12:49)
[2024-04-17 15:15] LABS: Influenza A QL RT-PCR Negative (Negative); Influenza B QL RT-PCR Negative (Negative); RSV RNA, RT-PCR Negative (Negative); SARS-CoV-2 RNA PCR Negative (Negative)
[2024-04-17 16:55] LABS: Sodium Urine Random 10 meq/L
[2024-04-17 17:33] LABS: Glucose Point of Care 172 mg/dl (65-105)
--- NOTE | 2024-04-17 18:01 | WPDONCPN ---
Progress Note: A/P (1) Anemia Code(s): D64.9 - Anemia, unspecified Status: Acute (2) Liver masses Code(s): R16.0 - Hepatomegaly, not elsewhere classified Status: Acute (3) Pancreatic mass Code(s): K86.89 - Other specified diseases of pancreas Status: Acute - Additional Plan Metastatic pancreatic cancer status post ultrasound-guided liver biopsy came back positive for adenocarcinoma. CT abdomen and pelvis showed 4.4 cm pancreatic mass with more than 20 liver lesions along with small pulmonary nodules and mediastinal lymphadenopathy. MediPort placement has been ordered but delayed due to leukocytosis and possible infection. Blood cultures are pending. CA 19-9 is pending. He will follow-up with in the office to start chemotherapy. - Time Spent With Patient Total time spent is greater than 50% in coordination of care (as documented) at patient's floor/unit and/or counseling patient: 15 - 25 minutes Subjective Interval history: Metastatic pancreatic cancer Review of Systems - Review of Systems Patient is sitting in the chair and looks quite comfortable. Denies any diarrhea and constipation. No abdominal pain. No other new complaints. Exam Vital signs: Temp Pulse Resp BP Pulse Ox O2 Del Method 36.8 C 104 H 16 127/70 96 Room Air 04/17/24 14:55 04/17/24 16:00 04/17/24 14:55 04/17/24 14:55 04/17/24 14:55 04/16/24 08:00 Narrative: Lungs are clear to auscultation bilaterally Cardiovascular regular rate rhythm no murmurs Abdomen soft nontender nondistended bowel sounds are positive Extremities mild lower extremity edema PN: Objective Data - Labs CBC & Chem 7: 04/17/24 09:28 04/17/24 05:49 Labs: Laboratory Results - last 24 hr 04/16/24 04/17/24 04/17/24 20:36 05:49 07:39 WBC 15.8 H RBC 4.59 L Hgb 11.8 L Hct 37.2 L MCV 81.0 MCH 25.7 L MCHC 31.7 L RDW 14.6 H Plt Count 231 MPV 9.6 Immature Gran % (Auto) 0.6 H Neut % (Auto) 79.2 H Lymph % (Auto) 6.1 L Webb % (Auto) 12.7 H Eos % (Auto) 1.1 Baso % (Auto) 0.3 Lymph # (Auto) 0.96 Webb # (Auto) 2.0 H Eos # (Auto) 0.2 Baso # (Auto) 0.0 Abs Immat Gran (auto) 0.10 H Absolute Neuts (auto) 12.5 H Absolute Nucleated RBC 0.000 Nucleated RBC % 0.0 PT INR APTT Sodium 128 L Potassium 3.8 Chloride 96 L Carbon Dioxide 22 Anion Gap 10 BUN 21 H Creatinine 0.70 Estim Creat Clear Calc 91 Estimated GFR > 60 Glucose 116 H POC Capillary Glucose 163 H 126 H Calcium 8.2 L Magnesium 2.1 Procalcitonin 2.7 Ur Random Sodium Influenza A (RT-PCR) Influenza B (RT-PCR) RSV (RT-PCR) SARS-CoV-2 RNA (RT-PCR) 04/17/24 04/17/24 04/17/24 09:28 11:46 12:53 WBC 16.9 H RBC 5.15 Hgb 13.3 L Hct 42.0 MCV 81.6 MCH 25.8 L MCHC 31.7 L RDW 14.7 H Plt Count 257 MPV 9.8 Immature Gran % (Auto) 0.7 H Neut % (Auto) 81.3 H Lymph % (Auto) 5.3 L Webb % (Auto) 11.9 H Eos % (Auto) 0.7 Baso % (Auto) 0.1 L Lymph # (Auto) 0.90 Webb # (Auto) 2.0 H Eos # (Auto) 0.1 Baso # (Auto) 0.0 Abs Immat Gran (auto) 0.11 H Absolute Neuts (auto) 13.7 H Absolute Nucleated RBC 0.000 Nucleated RBC % 0.0 PT 16.9 H INR 1.3 APTT 35.6 Sodium Potassium Chloride Carbon Dioxide Anion Gap BUN Creatinine Estim Creat Clear Calc Estimated GFR Glucose POC Capillary Glucose 217 H Calcium Magnesium Procalcitonin Ur Random Sodium Influenza A (RT-PCR) Negative Influenza B (RT-PCR) Negative RSV (RT-PCR) Negative SARS-CoV-2 RNA (RT-PCR) Negative 04/17/24 04/17/24 14:43 17:31 WBC RBC Hgb Hct MCV MCH MCHC RDW Plt Count MPV Immature Gran % (Auto) Neut % (Auto) Lymph % (Auto) Webb % (Auto) Eos % (Auto) Baso % (Auto) Lymph # (Auto) Webb #
[2024-04-17 20:42] LABS: Glucose Point of Care 152 mg/dl (65-105)
[2024-04-17] MEDS: MELATONIN 3 MG TABLET PO (21:08)
[2024-04-18] VITALS (9 sets, daily range): BP systolic 107–147; BP diastolic 55–79; PULSE 85–101; RESP 14–16; TEMP 36.6–36.9; O2SAT 97–100
[2024-04-18 05:48] LABS: CA 19-9 17324 U/mL (<34)
[2024-04-18 06:41] LABS: Anion Gap 12 mmol/L (4-12); Blood Urea Nitrogen 21 mg/dL (9-20); Carbon Dioxide 21 mmol/L (22-30); Chloride 94 mmol/L (98-107); Estimated CRCL calculation 117 ml/min; Estimated Glomerular Filt Rate > 60; Glucose 107 mg/dL (65-110); Magnesium 2.2 mg/dL (1.6-2.3); Potassium 3.9 mmol/L (3.4-5.0); Sodium 127 mmol/L (137-145)
[2024-04-18 07:30] LABS: Procalcitonin 2.3 ng/mL
[2024-04-18 07:33] LABS: Basophils Percent Auto 0.2 % (0.2-1.2); Eosinophils Absolute Auto 0.2 K/mm3 (0-0.3); Eosinophils Percent Auto 1.3 % (0-4.4); Hematocrit 37.7 % (42.0-52.0); Immature Granulocyte Absolute 0.11 K/mm3 (0.00-0.031); Immature Granulocyte Percent A 0.7 % (0-0.5); Lymphocytes Absolute Auto 0.91 K/mm3 (0.9-3.2); Lymphocytes Percent Auto 5.8 % (18.3-44.2); Mean Corpuscular HGB Conc 31.8 g/dl (32-36); Mean Corpuscular Hemoglobin 25.8 pg (26-34); Mean Corpuscular Volume 81.1 fl (80-100); Mean Platelet Volume 9.9 fl (7.4-10.4); Monocytes Absolute Auto 1.8 K/mm3 (0.1-0.6); Monocytes Percent Auto 11.7 % (2.6-8.5); Neutrophils Absolute Auto 12.6 K/mm3 (1.3-6.7); Neutrophils Percent Auto 80.3 % (45.5-73.1); Platelet Count Result 205 k/mm3 (150-375); Red Blood Count 4.65 M/mm3 (4.6-6.20); Red Cell Distribution Width 14.7 % (11.5-14.5); White Blood Count 15.7 K/mm3 (4.5-10.0)
[2024-04-18 07:47] LABS: Glucose Point of Care 121 mg/dl (65-105)
[2024-04-18] MEDS: FERROUS SULFATE 325 MG TABLET DR PO ×2 (08:27→16:56)
[2024-04-18] MEDS: LOSARTAN POTASSIUM 25 MG TABLET PO (08:27)
[2024-04-18] MEDS: ENOXAPARIN 40 MG/0.4 ML SYRINGE SUB-Q (08:27)
[2024-04-18] MEDS: EMPAGLIFLOZIN 25 MG TABLET PO (08:27)
[2024-04-18 11:25] LABS: Glucose Point of Care 128 mg/dl (65-105)
[2024-04-18 15:23] LABS: Albumin Level 2.8 g/dL (3.5-5.1)
[2024-04-18 16:08] LABS: Glucose Point of Care 151 mg/dl (65-105)
[2024-04-18 19:45] LABS: Glucose Point of Care 191 mg/dl (65-105)
[2024-04-18] MEDS: MELATONIN 5 MG TABLET PO (20:00)
[2024-04-18] MEDS: ACETAMINOPHEN 325 MG TABLET 650 MG PO (20:01)
[2024-04-19] VITALS (9 sets, daily range): BP systolic 126–135; BP diastolic 68–88; PULSE 77–102; RESP 16–20; TEMP 36.7–36.9; O2SAT 95–97
[2024-04-19 05:46] LABS: Basophils Percent Auto 0.3 % (0.2-1.2); Eosinophils Absolute Auto 0.2 K/mm3 (0-0.3); Eosinophils Percent Auto 1.4 % (0-4.4); Hematocrit 39.3 % (42.0-52.0); Hemoglobin 12.7 g/dL (14.0-18.0); Immature Granulocyte Absolute 0.11 K/mm3 (0.00-0.031); Immature Granulocyte Percent A 0.7 % (0-0.5); Lymphocytes Absolute Auto 1.05 K/mm3 (0.9-3.2); Lymphocytes Percent Auto 6.6 % (18.3-44.2); Mean Corpuscular HGB Conc 32.3 g/dl (32-36); Mean Corpuscular Hemoglobin 25.8 pg (26-34); Mean Corpuscular Volume 79.7 fl (80-100); Mean Platelet Volume 9.8 fl (7.4-10.4); Monocytes Absolute Auto 1.8 K/mm3 (0.1-0.6); Monocytes Percent Auto 11.3 % (2.6-8.5); Neutrophils Absolute Auto 12.7 K/mm3 (1.3-6.7); Neutrophils Percent Auto 79.7 % (45.5-73.1); Platelet Count Result 224 k/mm3 (150-375); Red Blood Count 4.93 M/mm3 (4.6-6.20); Red Cell Distribution Width 14.8 % (11.5-14.5)
[2024-04-19 06:04] LABS: Alanine Aminotransferase 102 U/L (6-50); Albumin Level 2.8 g/dL (3.5-5.1); Alkaline Phosphatase 325 U/L (38-126); Anion Gap 11 mmol/L (4-12); Aspartate Amino Transferase 150 U/L (17-59); Blood Urea Nitrogen 17 mg/dL (9-20); Calcium 8.1 mg/dL (8.4-10.2); Carbon Dioxide 23 mmol/L (22-30); Chloride 94 mmol/L (98-107); Estimated CRCL calculation 117 ml/min; Estimated Glomerular Filt Rate > 60; Glucose 105 mg/dL (65-110); Potassium 3.4 mmol/L (3.4-5.0); Sodium 128 mmol/L (137-145)
[2024-04-19 06:21] LABS: Procalcitonin 2.3 ng/mL
[2024-04-19 08:25] LABS: Glucose Point of Care 108 mg/dl (65-105)
[2024-04-19] MEDS: LOSARTAN POTASSIUM 25 MG TABLET PO (09:07)
[2024-04-19] MEDS: FERROUS SULFATE 325 MG TABLET DR PO ×2 (09:07→16:56)
[2024-04-19] MEDS: EMPAGLIFLOZIN 25 MG TABLET PO (09:07)
[2024-04-19] MEDS: HEPARIN SOD/D5W 100 UNITS/ML 25,000 UNITS/250 ML BAG 14 UNITS IV CONT (10:55)
[2024-04-19 11:25] LABS: Glucose Point of Care 208 mg/dl (65-105)
[2024-04-19] MEDS: INSULIN ASPART (*BKC) 100 UNITS/ML SUB-Q (11:48)
--- NOTE | 2024-04-19 12:13 | PM.PNGS ---
Progress Note: A&P Assessment and Plan (1) Malignant neoplasm of pancreas metastatic to liver: Code(s): C25.9 - Malignant neoplasm of pancreas, unspecified; C78.7 - Secondary malignant neoplasm of liver and intrahepatic bile duct Status: Chronic Assessment and Plan: patient does plan to receive chemotherapy and use a Port-A-Cath (2) Encounter for infusaport central venous catheter insertion: Code(s): Z45.2 - Encounter for adjustment and management of vascular access device Status: Acute Assessment and Plan: plan to place Port-A-Cath Sunday at noon, this would be April 21. I discussed the procedure in detail with the patient and his . I discussed why Port-A-Cath would be needed for chemotherapy. I explained the risks, Benefits, and alternatives. The risk of postprocedure pneumothorax was discussed as well it's treatment. All questions were answered. Patient would prefer to have it placed on the right side but is acceptable to having it placed on either side. (3) Portal vein thrombosis: Code(s): I81 - Portal vein thrombosis Status: Acute Assessment and Plan: Diagnosis today. Intrahepatic portal vein thrombosis likely due to widespread hepatic metastases. (4) Chronic anticoagulation: Code(s): Z79.01 - termite technician (current) use of anticoagulants Status: Acute Assessment and Plan: On heparin drip. Will stop at 6:00 a.m. Sunday. Subjective Subjective Date/Time Seen: 04/19/24 12:13 Patient reports: feels better, tolerating a regular diet and afebrile Interval history: Patient feels better, breathing better. He definitely wants to proceed with chemotherapy. He was found to have an intrahepatic portal vein thrombosis on venous Doppler yesterday and has been started on a heparin drip. Still has leukocytosis but infectious/septic workup is essentially negative. Review of Systems Review of Systems: All systems reviewed & are unremarkable except as noted in HPI and below ( HPI) Exam Const: General: comfortable, no acute distress, alert and awake Orientation/consciousness: patient oriented x3 Chest: Chest palpation & inspection: normal inspection of the chest, normal palpation of entire chest wall, no crepitus and No rash Resp: Effort & Inspection: normal respiratory effort, no cough, not labored and not tachypneic Auscultation: clear to auscultation bilaterally Cardio: Rate: regular rate Rhythm: regular rhythm Neuro: General: patient oriented x3 and no focal motor deficits Extrem: General: no calf tenderness and no edema Psych: Affect: normal affect Insight: Good insight present (Psych) Judgement: Good judgement present (Psych) Objective Data Vital Signs Vital Signs: Vital Signs - 24 hr 04/18/24 13:32 04/18/24 16:00 04/18/24 21:30 Temperature 36.6 C 36.9 C Pulse Rate 93 93 101 H Respiratory Rate 14 16 Blood Pressure 107/55 L 126/68 Pulse Oximetry 100 97 Oxygen Delivery 04/18/24 20:00 04/18/24 20:00 04/19/24 00:00 Temperature Pulse Rate 101 H 77 Respiratory Rate Blood Pressure Pulse Oximetry Oxygen Delivery Room Air 04/19/24 04:00 04/19/24 05:53 04/19/24 09:05 Temperature 36.7 C Pulse Rate 87 90 Respiratory Rate 16 Blood Pressure 126/88 Pulse Oximetry 97 Oxygen Delivery Room Air 04/19/24 08:00 Temperature Pulse Rate 88 Respiratory Rate Blood Pressure Pulse Oximetry Oxygen Delivery Intake/Output Intake/Output: Intake & Output 04/16/24 04/17/24 04/18/24 04/19/24 23:59 23:59 23:59 23:59 Intake Total 804 1920 2840 540 Output Total 300 Balance 804 1620 2840 540 Meds/Results Medications: Active Medications Generic Name Dose Route Start Last Admin Trade Name Freq PRN Reason Stop Dose Admin Acetaminophen 650 mg 04/15/24 17:57 04/18/24 20:01 Acetaminophen 325 Mg Tablet PO 650 mg Q6H PRN Administration Mild Pain (1
[2024-04-19 16:28] LABS: Glucose Point of Care 121 mg/dl (65-105)
[2024-04-19 17:45] LABS: Partial Thromboplastin Time 59.2 Seconds (22.3-36.8)
[2024-04-19] MEDS: HEPARIN SODIUM 5,000 UNITS/ML VIAL 3000 UNITS IV PUSH (18:09)
[2024-04-19] MEDS: ACETAMINOPHEN 325 MG TABLET 650 MG PO (19:44)
[2024-04-19] MEDS: MELATONIN 5 MG TABLET PO (19:44)
[2024-04-19 20:29] LABS: Glucose Point of Care 160 mg/dl (65-105)
[2024-04-20] VITALS (9 sets, daily range): BP systolic 126–138; BP diastolic 64–72; PULSE 10–103; RESP 16–18; TEMP 36.4–37.1; O2SAT 94–98
[2024-04-20 00:49] LABS: Partial Thromboplastin Time 146.9 Seconds (22.3-36.8)
[2024-04-20] MEDS: HEPARIN SOD/D5W 100 UNITS/ML 25,000 UNITS/250 ML BAG 14 UNITS IV CONT ×2 (03:43→22:16)
[2024-04-20 06:10] LABS: Hematocrit 38.6 % (42.0-52.0); Hemoglobin 12.5 g/dL (14.0-18.0); Mean Corpuscular HGB Conc 32.4 g/dl (32-36); Mean Corpuscular Hemoglobin 26.1 pg (26-34); Mean Corpuscular Volume 80.6 fl (80-100); Mean Platelet Volume 10.1 fl (7.4-10.4); Platelet Count Result 233 k/mm3 (150-375); Red Blood Count 4.79 M/mm3 (4.6-6.20); Red Cell Distribution Width 15.1 % (11.5-14.5)
[2024-04-20 06:20] LABS: Alanine Aminotransferase 94 U/L (6-50); Albumin Level 2.8 g/dL (3.5-5.1); Alkaline Phosphatase 327 U/L (38-126); Anion Gap 12 mmol/L (4-12); Aspartate Amino Transferase 147 U/L (17-59); Bilirubin,Total 0.9 mg/dL (0.2-1.3); Blood Urea Nitrogen 16 mg/dL (9-20); Calcium 7.8 mg/dL (8.4-10.2); Carbon Dioxide 22 mmol/L (22-30); Chloride 94 mmol/L (98-107); Estimated CRCL calculation 123 ml/min; Estimated Glomerular Filt Rate > 60; Glucose 111 mg/dL (65-110); INR 1.3; Potassium 3.4 mmol/L (3.4-5.0); Prothrombin Time 16.5 Seconds (11.1-14.7); Sodium 128 mmol/L (137-145)
[2024-04-20 06:22] LABS: Partial Thromboplastin Time 93.2 Seconds (22.3-36.8)
[2024-04-20 07:36] LABS: Glucose Point of Care 112 mg/dl (65-105)
[2024-04-20] MEDS: EMPAGLIFLOZIN 25 MG TABLET PO (08:06)
[2024-04-20] MEDS: FERROUS SULFATE 325 MG TABLET DR PO ×2 (08:06→17:03)
[2024-04-20] MEDS: LOSARTAN POTASSIUM 25 MG TABLET PO (08:06)
[2024-04-20 11:25] LABS: Glucose Point of Care 168 mg/dl (65-105)
--- NOTE | 2024-04-20 12:17 | P.PNIM_ITS ---
Progress Note: A&P Assessment and Plan (1) Anemia: Code(s): D64.9 - Anemia, unspecified Status: Acute (2) Hypertension: Code(s): I10 - Essential (primary) hypertension Status: Acute (3) Dehydration: Code(s): E86.0 - Dehydration Status: Acute (4) Splenic infarct: Code(s): D73.5 - Infarction of spleen Status: Acute (5) Type 2 diabetes mellitus: Code(s): E11.9 - Type 2 diabetes mellitus without complications Status: Acute (6) Pancreatic mass: Code(s): K86.89 - Other specified diseases of pancreas Status: Acute (7) Liver masses: Code(s): R16.0 - Hepatomegaly, not elsewhere classified Status: Acute (8) Elevated troponin: Code(s): R79.89 - Other specified abnormal findings of blood chemistry Status: Acute (9) Transaminitis: Code(s): R74.01 - Elevation of levels of liver transaminase levels Status: Acute (10) Abdominal pain: Qualifiers: Abdominal location: right upper quadrant Qualified Code(s): R10.11 - Right upper quadrant pain Code(s): R10.9 - Unspecified abdominal pain Status: Acute Plan H&P via Lisette Lee PA-C: This is a pleasant 63-year-old male with hypertension, hyperlipidemia, and type 2 diabetes mellitus who presented to the emergency department via private vehicle for evaluation of abdominal pain. The patient provides the following history. He gives a 1-1/2 week history of nonradiating upper right-sided abdominal pain that he has difficulties describing. It has been constant but manageable with ibuprofen. He also complains of nausea, decreased appetite, and loss of energy for nearly which has been going on for about a month. He initially attributed his symptoms to Ozempic which he stopped taking at the beginning of the month however symptoms have persisted. He also endorses an intermittent fever, reporting chills followed by sweats an hour so later. He made an appointment with Dr. Helms today and was referred to the ED for further workup. With further questioning he reports an unintentional 24 lb weig ht loss in the last month. He denies vomiting, diarrhea, constipation, edema, calf pain, shortness of breath, chest pain, pleuritic pain, palpitations, orthopnea, paroxysmal nocturnal dyspnea, dysphagia, jaundice, pruritus, melena, and hematochezia. In the ED: He has been afebrile since arrival with stable blood pressures. He is tachypneic with an SpO2 in the mid upper 90s on room air. Labs were significant for a WBC count 13.3, hemoglobin 12.9, D-dimer greater than 20, sodium 133, chloride 95, BUN 23, creatinine 0.70, lactic acid 2.3, glucose 164, total bilirubin 0.8, AST 182, ALT 117, alkaline phosphatase 295, lipase 134, troponin 0.081. Urinalysis showed 1+ protein, 3+ glucose, trace ketones, and elevated specific gravity. EKG was read as having a sinus rhythm with borderline R-wave progression and consider inferior infarct age indeterminate. CT of the chest, abdomen, and pelvis showed a 4.4 cm pancreatic mass consistent with primary adenocarcinoma, greater than 20 liver masses consistent with metastatic disease, splenic infarct, small pulmonary nodules and mild mediastinal lymphadenopathy and a small volume of ascites. It was negative for pulmonary embolism. ED provider spoke with hepatobiliary team at [facility] who indicated that he would not be a candidate for surgery given evidence of metastatic disease and they recommended admission for biopsy and oncology consultation. ----- Trend leukocytosis. Check procalcitonin. Liver biopsy of left hepatic lobe mass completed. SCDs
[2024-04-20 16:25] LABS: Glucose Point of Care 121 mg/dl (65-105)
[2024-04-20 20:34] LABS: Glucose Point of Care 167 mg/dl (65-105)
[2024-04-20] MEDS: ACETAMINOPHEN 325 MG TABLET 650 MG PO (20:41)
[2024-04-20] MEDS: MELATONIN 5 MG TABLET PO (20:42)
[2024-04-20] MEDS: HYDROcodone/acetaminophen (*CRX) 5-325 MG TABLET 1 TAB PO (23:41)
[2024-04-21] VITALS (18 sets, daily range): BP systolic 115–138; BP diastolic 59–84; PULSE 80–98; RESP 14–24; TEMP 35.8–37; O2SAT 93–98
[2024-04-21] MEDS: MORPHINE SULFATE (*CRX) 4 MG/ML INJ 2 MG IV PUSH (04:25)
[2024-04-21 05:56] LABS: Basophils Percent Auto 0.2 % (0.2-1.2); Eosinophils Absolute Auto 0.3 K/mm3 (0-0.3); Eosinophils Percent Auto 1.7 % (0-4.4); Hematocrit 39.7 % (42.0-52.0); Hemoglobin 12.5 g/dL (14.0-18.0); Immature Granulocyte Absolute 0.15 K/mm3 (0.00-0.031); Immature Granulocyte Percent A 0.9 % (0-0.5); Lymphocytes Absolute Auto 1.56 K/mm3 (0.9-3.2); Lymphocytes Percent Auto 9.3 % (18.3-44.2); Mean Corpuscular HGB Conc 31.5 g/dl (32-36); Mean Corpuscular Hemoglobin 25.7 pg (26-34); Mean Corpuscular Volume 81.7 fl (80-100); Monocytes Absolute Auto 1.5 K/mm3 (0.1-0.6); Neutrophils Absolute Auto 13.3 K/mm3 (1.3-6.7); Neutrophils Percent Auto 78.9 % (45.5-73.1); Platelet Count Result 251 k/mm3 (150-375); Red Blood Count 4.86 M/mm3 (4.6-6.20); Red Cell Distribution Width 15.7 % (11.5-14.5); White Blood Count 16.9 K/mm3 (4.5-10.0)
[2024-04-21 06:05] LABS: Alanine Aminotransferase 91 U/L (6-50); Albumin Level 2.7 g/dL (3.5-5.1); Alkaline Phosphatase 340 U/L (38-126); Anion Gap 8 mmol/L (4-12); Aspartate Amino Transferase 161 U/L (17-59); Bilirubin,Total 0.9 mg/dL (0.2-1.3); Blood Urea Nitrogen 17 mg/dL (9-20); Calcium 7.8 mg/dL (8.4-10.2); Carbon Dioxide 30 mmol/L (22-30); Chloride 92 mmol/L (98-107); Estimated CRCL calculation 120 ml/min; Estimated Glomerular Filt Rate > 60; Glucose 100 mg/dL (65-110); Magnesium 2.1 mg/dL (1.6-2.3); Potassium 4.2 mmol/L (3.4-5.0); Sodium 130 mmol/L (137-145)
[2024-04-21 06:07] LABS: INR 1.2; Prothrombin Time 15.8 Seconds (11.1-14.7)
[2024-04-21 06:22] LABS: Procalcitonin 2.4 ng/mL
[2024-04-21] MEDS: HYDROcodone/acetaminophen (*CRX) 5-325 MG TABLET 1 TAB PO (06:36)
[2024-04-21 07:38] LABS: Glucose Point of Care 108 mg/dl (65-105)
--- NOTE | 2024-04-21 08:30 | PC.NURSE ---
To OR via wheelchair
[2024-04-21 08:48] LABS: Glucose Point of Care 118 mg/dl (65-105)
--- NOTE | 2024-04-21 10:23 | WPDHPUPDATE1 ---
History and Physical Update Update Date/Time: 04/21/24 10:23 History and Physical has been reviewed, including an updated exam of the patient. There are NO changes in the patient's condition. Risks, benefits, and alternatives have been discussed and questions answered. Patient agrees to proceed with procedure.
--- NOTE | 2024-04-21 10:30 | WPDANESEPPF ---
Anes - Initial Pre Proc Eval Procedure: Operation Date: 04/18/24 09:30 Proposed Procedures p Insertion Nomi Cath Under Fluoroscopy - Marcos Rivas MD Operation Date: 04/21/24 10:00 Proposed Procedures p Insertion Nomi Cath - Marcos Rivas MD Date/Time: 04/21/24 10:30 Surgeon: Too Chatman MD Pre Op Diagnosis: Pancreatic Mass/Metastatic Liver Lesions/Elev Trop Patient Data Age: 63 Gender: M Height: 1.75 m Weight: 97.3 kg Last Vital Signs Temp 97 F L 04/21/24 08:59 Pulse 96 04/21/24 08:59 Resp 18 04/21/24 05:25 BP 130/71 04/21/24 08:59 Pulse Ox 97 04/21/24 08:59 O2 Del Method Room Air 04/21/24 08:59 Allergies Allergy/AdvReac Type Severity Reaction Status Date / Time atorvastatin [From Lipitor] AdvReac Unknown Muscle Pain Verified 04/15/24 09:53 Home Medications Medication Instructions Recorded Confirmed Type aspirin 81 mg tablet,delayed 81 mg PO DAILY 01/13/20 04/15/24 History release (Adult Low Dose Aspirin) ibuprofen 200 mg capsule 200 mg PO Q6H PRN Pain 10/31/21 04/15/24 History empagliflozin 25 mg tablet 25 mg PO DAILY #90 tabs 10/31/23 04/15/24 Rx (Jardiance) losartan 25 mg tablet 25 mg PO DAILY #90 tabs 10/31/23 04/15/24 Rx semaglutide 1 mg/dose (4 mg/3 mL) 1 mg (0.75 mL) subcut WEEKLY #3 mL 12/11/23 04/15/24 Rx subcutaneous pen injector semaglutide 2 mg/dose (8 mg/3 mL) 2 mg (0.75 mL) subcut WEEKLY #3 mL 12/11/23 04/15/24 Rx subcutaneous pen injector blood sugar diagnostic (Blood #50 ea 12/12/23 04/15/24 Rx Glucose Test strips) blood-glucose meter #1 ea 12/12/23 04/15/24 Rx lancets 30 gauge #100 ea 12/12/23 04/15/24 Rx semaglutide 0.25 mg or 0.5 mg (2 See Rx Instructions .Route 03/17/24 04/15/24 Rx mg/3 mL) subcutaneous pen injector .COMPLEX #3 mL (Ozempic) metformin 750 mg tablet,extended 750 mg PO BID 04/15/24 04/15/24 History release 24 hr rosuvastatin 40 mg tablet 40 mg PO HS 04/15/24 04/15/24 History Laboratory Tests 04/20/24 04/20/24 04/20/24 11:10 12:04 16:17 WBC RBC Hgb Hct MCV MCH MCHC RDW Plt Count MPV Immature Gran % (Auto) Neut % (Auto) Lymph % (Auto) [place] % (Auto) Eos % (Auto) Baso % (Auto) Lymph # (Auto) [place] # (Auto) Eos # (Auto) Baso # (Auto) Abs Immat Gran (auto) Absolute Neuts (auto) Absolute Nucleated RBC Nucleated RBC % PT INR APTT 74.0 H Seconds (22.3-36.8) Sodium Potassium Chloride Carbon Dioxide Anion Gap BUN Creatinine Estim Creat Clear Calc Estimated GFR Glucose POC Capillary Glucose 168 H mg/dl 121 H mg/dl (65-105) (65-105) Calcium Magnesium Total Bilirubin AST ALT Alkaline Phosphatase Total Protein Albumin Procalcitonin 04/20/24 04/21/24 04/21/24 20:28 05:43 07:22 WBC 16.9 H K/mm3 (4.5-10.0) RBC 4.86 M/mm3 (4.6-6.20) Hgb 12.5 L g/dL (14.0-18.0) Hct 39.7 L % (42.0-52.0) MCV 81.7 fl (80-100) MCH 25.7 L pg (26-34) MCHC 31.5 L g/dl (32-36) RDW 15.7 H % (11.5-14.5) Plt Count 251 k/mm3 (150-375) MPV 10.0 fl (7.4-10.4) Immature Gran % (Auto) 0.9 H % (0-0.5) Neut % (Auto) 78.9 H % (45.5-73.1) Lymph % (Auto) 9.3 L % (18.3-44.2) [place] % (Auto) 9.0 H % (2.6-8.5) Eos % (Auto) 1.7 % (0-4.4) Baso % (Auto) 0.2 % (0.2-1.2) Lymph # (Auto)
[2024-04-21] MEDS: ceFAZolin 2 GM/D5W 50 ML 2 GM/50 ML BAG IVPB (10:57)
[2024-04-21] MEDS: BUPIVACAINE/EPINEPHRINE 0.5% 10 ML VIAL 20 ML INFILTRATE (11:22)
[2024-04-21] MEDS: HEPARIN SODIUM 1,000 UNITS/ML VIAL 1000 UNITS IV PUSH (11:23)
[2024-04-21] MEDS: BUPIVACAINE/EPINEPHRINE 0.5% 50 ML VIAL 20 ML INFILTRATE (12:01)
--- NOTE | 2024-04-21 12:38 | W.PM.PROC2 ---
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 CT scan there showed a large pancreatic mass and many metastatic lesions in the liver. He is to sided to undergo pale it if chemotherapy. He is taken to the operating room now for placement of a Port-A-Cath for adequate venous access for chemotherapy. Findings Right subclavian vein was able to be cannulated but it is right angle junction with the innominate vein prevented the sleeve from remaining patent and the catheter could not be placed down the sleeve. For this reason, we used the ultrasound and cannulated the internal jugular vein in the right neck and tunneled the Port-A-Cath from the subclavian pocket to the internal jugular vein insertion site. The catheters ultimate position was in the distal SVC right atrial junction. There were no kinks or narrowing in its course as judged by fluoroscopy. Description of Procedure Patient was taken to surgery and anesthesia was introduced. The right chest and right neck were prepped and draped. The proposed right subclavian incision was marked on the skin. Local was infiltrated thoroughly into the skin and the deeper subcutaneous tissues. Incision was made and dissection was carried down through the subcutaneous and through the pectoralis major fascia. A subfascial pocket was then created until adequate room for the Port-A-Cath was available. Local was then infiltrated under the right clavicle. The right subclavian vein was then cannulated. Initially we could not get the Port-A-Cath to pass from the subclavian vein into the innominate vein. The needle and wire were removed. I again cannulated the right subclavian vein and initially, the same thing occurred. Fortunately by turning the guidewire it did eventually pop into the superior vena cava. I measured the length of Port-A-Cath needed using fluoroscopy. I then passed an introducer and sheath over the guidewire into the inferior vena cava. The guidewire and introducer were removed. However, the sheath kinked and despite my best efforts, I was unable to pass the Port-A-Cath tubing into the right subclavian vein. Eventually, this was abandoned. We then brought in the ultrasound and, using ultrasound, I found the internal jugular vein in the lower neck. A single puncture was used and the vein was cannulated. The guidewire was then passed and was in the superior vena cava. I then infiltrated local at 1 counter incision and at the exit site of the guidewire in the right neck. The counter incision was made and I made a 2nd incision on each side of the guidewire. The Port-A-Cath was then tunneled from the subclavian pocket up through the counter incision and then through the incision at the exit of the guidewire. The tunneler was removed. The Port-A-Cath was cut to the appropriate length using fluoroscopy. I passed the introducer and sheath over the guidewire and into the superior vena cava under fluoroscopy. The introducer and guidewire were removed and the Port-A-Cath tubing was advanced through the sheath and into the distal SVC. Then we removed the sheath. The Port-A-Cath tubing had a nice curve with no kinks. It was positioned in the distal SVC right atrial junction. I checked the Port-A-Cath with heparin and it aspirated blood easily and flushed well. It was checked 3 different times and worked well each time. I sutured the Port-A-Cath to the pectoralis major muscle with 3-0 silk suture. The Port-A-Cath pocket was then closed with running 2-0 Vicryl layered closure. The counter incisions in the neck were closed with goss
[2024-04-21 12:44] LABS: Glucose Point of Care 122 mg/dl (65-105)
[2024-04-21 14:33] LABS: Basophils Absolute Auto 0.1 K/mm3 (0.0-0.1); Basophils Percent Auto 0.3 % (0.2-1.2); Eosinophils Absolute Auto 0.1 K/mm3 (0-0.3); Eosinophils Percent Auto 0.7 % (0-4.4); Hematocrit 39.2 % (42.0-52.0); Hemoglobin 12.6 g/dL (14.0-18.0); Immature Granulocyte Absolute 0.18 K/mm3 (0.00-0.031); Immature Granulocyte Percent A 0.9 % (0-0.5); Lymphocytes Absolute Auto 1.21 K/mm3 (0.9-3.2); Lymphocytes Percent Auto 6.1 % (18.3-44.2); Mean Corpuscular HGB Conc 32.1 g/dl (32-36); Mean Corpuscular Hemoglobin 26.5 pg (26-34); Mean Corpuscular Volume 82.4 fl (80-100); Mean Platelet Volume 9.2 fl (7.4-10.4); Monocytes Absolute Auto 1.8 K/mm3 (0.1-0.6); Monocytes Percent Auto 8.9 % (2.6-8.5); Neutrophils Absolute Auto 16.4 K/mm3 (1.3-6.7); Neutrophils Percent Auto 83.1 % (45.5-73.1); Platelet Count Result 206 k/mm3 (150-375); Red Blood Count 4.76 M/mm3 (4.6-6.20); Red Cell Distribution Width 15.6 % (11.5-14.5); White Blood Count 19.7 K/mm3 (4.5-10.0)
[2024-04-21 14:43] LABS: INR 1.4; Prothrombin Time 17.1 Seconds (11.1-14.7)
[2024-04-21 14:44] LABS: Partial Thromboplastin Time 40.5 Seconds (22.3-36.8)
[2024-04-21 15:22] LABS: Osmolality, Urine 731 mOsm/kg (50-1200)
[2024-04-21] MEDS: LOSARTAN POTASSIUM 25 MG TABLET PO (15:25)
[2024-04-21] MEDS: FERROUS SULFATE 325 MG TABLET DR PO ×2 (15:25→17:31)
[2024-04-21] MEDS: EMPAGLIFLOZIN 25 MG TABLET PO (15:25)
[2024-04-21 16:19] LABS: Glucose Point of Care 154 mg/dl (65-105)
[2024-04-21 20:19] LABS: Glucose Point of Care 137 mg/dl (65-105)
--- NOTE | 2024-04-21 20:25 | P.PNIM_ITS ---
Progress Note: A&P Assessment and Plan (1) Anemia: Code(s): D64.9 - Anemia, unspecified Status: Acute (2) Hypertension: Code(s): I10 - Essential (primary) hypertension Status: Acute (3) Dehydration: Code(s): E86.0 - Dehydration Status: Acute (4) Splenic infarct: Code(s): D73.5 - Infarction of spleen Status: Acute (5) Type 2 diabetes mellitus: Code(s): E11.9 - Type 2 diabetes mellitus without complications Status: Acute (6) Pancreatic mass: Code(s): K86.89 - Other specified diseases of pancreas Status: Acute (7) Liver masses: Code(s): R16.0 - Hepatomegaly, not elsewhere classified Status: Acute (8) Elevated troponin: Code(s): R79.89 - Other specified abnormal findings of blood chemistry Status: Acute (9) Transaminitis: Code(s): R74.01 - Elevation of levels of liver transaminase levels Status: Acute (10) Abdominal pain: Qualifiers: Abdominal location: right upper quadrant Qualified Code(s): R10.11 - Right upper quadrant pain Code(s): R10.9 - Unspecified abdominal pain Status: Acute (11) Portal vein thrombosis: Code(s): I81 - Portal vein thrombosis Status: Acute Plan H&P via Lisette Lee PA-C: This is a pleasant 63-year-old male with hypertension, hyperlipidemia, and type 2 diabetes mellitus who presented to the emergency department via private vehicle for evaluation of abdominal pain. The patient provides the following history. He gives a 1-1/2 week history of nonradiating upper right-sided abdominal pain that he has difficulties describing. It has been constant but manageable with ibuprofen. He also complains of nausea, decreased appetite, and loss of energy for nearly which has been going on for about a month. He initially attributed his symptoms to Ozempic which he stopped taking at the beginning of the month however symptoms have persisted. He also endorses an intermittent fever, reporting chills followed by sweats an hour so later. He made an appointment with Dr. Helms today and was referred to the ED for further workup. With further questioning he reports an unintentional 24 lb weight loss in the last month. He denies vomiting, diarrhea, constipation, edema, calf pain, shortness of breath, chest pain, pleuritic pain, palpitations, orthopnea, paroxysmal nocturnal dyspnea, dysphagia, jaundice, pruritus, melena, and hematochezia. In the ED: He has been afebrile since arrival with stable blood pressures. He is tachypneic with an SpO2 in the mid upper 90s on room air. Labs were significant for a WBC count 13.3, hemoglobin 12.9, D-dimer greater than 20, sodium 133, chloride 95, BUN 23, creatinine 0.70, lactic acid 2.3, glucose 164, total bilirubin 0.8, AST 182, ALT 117, alkaline phosphatase 295, lipase 134, troponin 0.081. Urinalysis showed 1+ protein, 3+ glucose, trace ketones, and elevated specific gravity. EKG was read as having a sinus rhythm with borderline R-wave progression and consider inferior infarct age indeterminate. CT of the chest, abdomen, and pelvis showed a 4.4 cm pancreatic mass consistent with primary adenocarcinoma, greater than 20 liver masses consistent with metastatic disease, splenic infarct, small pulmonary nodules and mild mediastinal lymphadenopathy and a small volume of ascites. It was negative for pulmonary embolism. ED provider spoke with hepatobiliary team at [facility] who indicated that he would not be a candidate for surgery given evidence of metastatic disease and they recommended admission for biopsy and oncology consultation. -----
[2024-04-21] MEDS: ACETAMINOPHEN 500 MG TABLET PO (20:46)
[2024-04-21] MEDS: MELATONIN 5 MG TABLET PO (20:47)
[2024-04-21] MEDS: oxyCODONE/ACETAMINOPHEN (*CRX) 5-325 MG TABLET 1 TABLET PO (22:55)
[2024-04-22 03:48] VITALS: BP 119/74; PULSE 86; RESP 20; TEMP 36.3; O2SAT 96
[2024-04-22 05:54] LABS: Basophils Percent Auto 0.2 % (0.2-1.2); Eosinophils Absolute Auto 0.2 K/mm3 (0-0.3); Eosinophils Percent Auto 1.2 % (0-4.4); Hematocrit 38.9 % (42.0-52.0); Hemoglobin 12.1 g/dL (14.0-18.0); Immature Granulocyte Absolute 0.16 K/mm3 (0.00-0.031); Immature Granulocyte Percent A 0.8 % (0-0.5); Lymphocytes Percent Auto 6.3 % (18.3-44.2); Mean Corpuscular HGB Conc 31.1 g/dl (32-36); Mean Corpuscular Hemoglobin 25.6 pg (26-34); Mean Corpuscular Volume 82.2 fl (80-100); Mean Platelet Volume 10.2 fl (7.4-10.4); Monocytes Absolute Auto 1.9 K/mm3 (0.1-0.6); Monocytes Percent Auto 9.9 % (2.6-8.5); Neutrophils Absolute Auto 15.6 K/mm3 (1.3-6.7); Neutrophils Percent Auto 81.6 % (45.5-73.1); Platelet Count Result 227 k/mm3 (150-375); Red Blood Count 4.73 M/mm3 (4.6-6.20); Red Cell Distribution Width 15.9 % (11.5-14.5); White Blood Count 19.1 K/mm3 (4.5-10.0)
[2024-04-22 06:06] LABS: Anion Gap 8 mmol/L (4-12); Blood Urea Nitrogen 16 mg/dL (9-20); Calcium 7.9 mg/dL (8.4-10.2); Carbon Dioxide 30 mmol/L (22-30); Chloride 91 mmol/L (98-107); Estimated CRCL calculation 104 ml/min; Estimated Glomerular Filt Rate > 60; Glucose 91 mg/dL (65-110); Potassium 4.3 mmol/L (3.4-5.0); Sodium 129 mmol/L (137-145)
[2024-04-22 07:13] LABS: Alanine Aminotransferase 120 U/L (6-50); Albumin Level 2.7 g/dL (3.5-5.1); Alkaline Phosphatase 391 U/L (38-126); Anion Gap 9 mmol/L (4-12); Aspartate Amino Transferase 299 U/L (17-59); Bilirubin,Total 1.2 mg/dL (0.2-1.3); Blood Urea Nitrogen 17 mg/dL (9-20); Calcium 7.8 mg/dL (8.4-10.2); Carbon Dioxide 29 mmol/L (22-30); Chloride 91 mmol/L (98-107); Estimated CRCL calculation 120 ml/min; Estimated Glomerular Filt Rate > 60; Glucose 90 mg/dL (65-110); Potassium 4.4 mmol/L (3.4-5.0); Sodium 129 mmol/L (137-145)
[2024-04-22 07:29] LABS: Glucose Point of Care 97 mg/dl (65-105)
[2024-04-22 08:00] VITALS: BP 144/74; PULSE 101; RESP 26; TEMP 36.3; O2SAT 94
[2024-04-22] MEDS: APIXABAN 5 MG TABLET PO (08:17)
[2024-04-22] MEDS: EMPAGLIFLOZIN 25 MG TABLET PO (08:17)
[2024-04-22] MEDS: FERROUS SULFATE 325 MG TABLET DR PO (08:17)
[2024-04-22] MEDS: LOSARTAN POTASSIUM 25 MG TABLET PO (08:17)
[2024-04-22 11:25] LABS: Glucose Point of Care 159 mg/dl (65-105)
[2024-04-22 11:52] VITALS: BP 138/81; PULSE 104; RESP 22; TEMP 36.8; O2SAT 96
--- NOTE | 2024-04-22 12:49 | WPDANESPN ---
Anes - Prog Note Post-Op Date/Time: 04/22/24 12:49 Cardiovascular status: normal Respiratory status: normal Airway patency: baseline Mental status: baseline Post-Op hydration status: normal Vital Signs: Last Vital Signs Temp 36.8 C 04/22/24 11:52 Pulse 104 H 04/22/24 11:52 Resp 22 H 04/22/24 11:52 BP 138/81 04/22/24 11:52 Pulse Ox 96 04/22/24 11:52 O2 Del Method Room Air 04/21/24 19:51 O2 Flow Rate 8 04/21/24 12:33 Pain Score (VAS): 09/26 I/O: Intake & Output 04/21/24 04/22/24 04/22/24 23:59 07:59 15:59 Intake Total 1100 240 Balance 1100 240 Laboratory Tests 04/22/24 05:39 04/22/24 05:39 04/17/24 04/21/24 04/21/24 14:43 14:25 16:08 WBC 19.7 H RBC 4.76 Hgb 12.6 L Hct 39.2 L MCV 82.4 MCH 26.5 MCHC 32.1 RDW 15.6 H Plt Count 206 MPV 9.2 Immature Gran % (Auto) 0.9 H Neut % (Auto) 83.1 H Lymph % (Auto) 6.1 L Bracken % (Auto) 8.9 H Eos % (Auto) 0.7 Baso % (Auto) 0.3 Lymph # (Auto) 1.21 Bracken # (Auto) 1.8 H Eos # (Auto) 0.1 Baso # (Auto) 0.1 Abs Immat Gran (auto) 0.18 H Absolute Neuts (auto) 16.4 H Absolute Nucleated RBC 0.000 Nucleated RBC % 0.0 PT 17.1 H INR 1.4 APTT 40.5 H Sodium Potassium Chloride Carbon Dioxide Anion Gap BUN Creatinine Estim Creat Clear Calc Estimated GFR Glucose POC Capillary Glucose 154 H Calcium Total Bilirubin AST ALT Alkaline Phosphatase Total Protein Albumin Urine Osmolality 731 04/21/24 04/22/24 04/22/24 20:09 05:39 05:39 WBC 19.1 H RBC 4.73 Hgb 12.1 L Hct 38.9 L MCV 82.2 MCH 25.6 L MCHC 31.1 L RDW 15.9 H Plt Count 227 MPV 10.2 Immature Gran % (Auto) 0.8 H Neut % (Auto) 81.6 H Lymph % (Auto) 6.3 L Bracken % (Auto) 9.9 H Eos % (Auto) 1.2 Baso % (Auto) 0.2 Lymph # (Auto) 1.20 Bracken # (Auto) 1.9 H Eos # (Auto) 0.2 Baso # (Auto) 0.0 Abs Immat Gran (auto) 0.16 H Absolute Neuts (auto) 15.6 H Absolute Nucleated RBC 0.000 Nucleated RBC % 0.0 PT INR APTT Sodium 129 L 129 L Potassium 4.3 Chloride Carbon Dioxide Anion Gap BUN Creatinine Estim Creat Clear Calc Estimated GFR Glucose POC Capillary Glucose 137 H Calcium Total Bilirubin AST ALT Alkaline Phosphatase Total Protein Albumin Urine Osmolality 04/22/24 04/22/24 04/22/24 05:39 05:39 05:39 WBC RBC Hgb Hct MCV MCH MCHC RDW Plt Count MPV Immature Gran % (Auto) Neut % (Auto) Lymph % (Auto) Bracken % (Auto) Eos % (Auto) Baso % (Auto) Lymph # (Auto) Bracken # (Auto) Eos # (Auto) Baso # (Auto) Abs Immat Gran (auto) Absolute Neuts (auto) Absolute Nucleated RBC Nucleated RBC % PT INR APTT Sodium Potassium 4.4 Chloride 91 L 91 L Carbon Dioxide 30 29 Anion Gap 8 BUN Creatinine Estim Creat Clear Calc Estimated GFR Glucose POC Capillary Glucose Calcium Total Bilirubin AST ALT Alkaline Phosphatase Total Protein Albumin Urine Osmolality 04/22/24 04/22/24 04/22/24 05:39 05:39 05:39 WBC RBC Hgb Hct MCV MCH MCHC RDW Plt Count MPV Immature Gran % (Auto) Neut % (Auto) Lymph % (Auto) Bracken % (Auto) Eos % (Auto) Baso % (Auto) Lymph # (Auto) Bracken # (Auto) Eos # (Auto) Baso # (Auto) Abs Immat Gran (auto) Absolute Neuts (auto) Absolute Nucleated RBC Nucleated RBC % PT INR APTT Sodium Potassium Chloride Carbon Dioxide Anion Gap 9 BUN 16 17 Creatinine 0.70 0.60 L Estim Creat Clear Calc 104 Estimated GFR Glucose POC Capillary Glucose Calcium Total Bilirubin AST ALT Alkaline Phosphatase
--- NOTE | 2024-04-22 14:45 | P.DS_ITS ---
DS: Admitting Diagnosis Discharge Date 04/22/2024 Admitting Diagnosis Abdominal Pain DS: Discharge Diagnosis Discharge Diagnosis (1) Anemia: Code(s): D64.9 - Anemia, unspecified Status: Acute (2) Hypertension: Code(s): I10 - Essential (primary) hypertension Status: Acute (3) Dehydration: Code(s): E86.0 - Dehydration Status: Acute (4) Splenic infarct: Code(s): D73.5 - Infarction of spleen Status: Acute (5) Type 2 diabetes mellitus: Code(s): E11.9 - Type 2 diabetes mellitus without complications Status: Acute (6) Pancreatic mass: Code(s): K86.89 - Other specified diseases of pancreas Status: Acute (7) Liver masses: Code(s): R16.0 - Hepatomegaly, not elsewhere classified Status: Acute (8) Elevated troponin: Code(s): R79.89 - Other specified abnormal findings of blood chemistry Status: Acute (9) Transaminitis: Code(s): R74.01 - Elevation of levels of liver transaminase levels Status: Acute (10) Abdominal pain: Qualifiers: Abdominal location: right upper quadrant Qualified Code(s): R10.11 - Right upper quadrant pain Code(s): R10.9 - Unspecified abdominal pain Status: Acute Plan H&P via Lisette Lee PA-C: This is a pleasant 63-year-old male with hypertension, hyperlipidemia, and type 2 diabetes mellitus who presented to the emergency department via private vehicle for evaluation of abdominal pain. The patient provides the following history. He gives a 1-1/2 week history of nonradiating upper right-sided abdominal pain that he has difficulties describing. It has been constant but manageable with ibuprofen. He also complains of nausea, decreased appetite, and loss of energy for nearly which has been going on for about a month. He initially attributed his symptoms to Ozempic which he stopped taking at the beginning of the month however symptoms have persisted. He also endorses an intermittent fever, reporting chills followed by sweats an hour so later. He made an appointment with Dr. Helms today and was referred to the ED for further workup. With further questioning he reports an unintentional 24 lb weight loss in the last month. He denies vomiting, diarrhea, constipation, edema, calf pain, shortness of breath, chest pain, pleuritic pain, palpitations, orthopnea, paroxysmal nocturnal dyspnea, dysphagia, jaundice, pruritus, melena, and hematochezia. In the ED: He has been afebrile since arrival with stable blood pressures. He is tachypneic with an SpO2 in the mid upper 90s on room air. Labs were significant for a WBC count 13.3, hemoglobin 12.9, D-dimer greater than 20, sodium 133, chloride 95, BUN 23, creatinine 0.70, lactic acid 2.3, glucose 164, total bi lirubin 0.8, AST 182, ALT 117, alkaline phosphatase 295, lipase 134, troponin 0.081. Urinalysis showed 1+ protein, 3+ glucose, trace ketones, and elevated specific gravity. EKG was read as having a sinus rhythm with borderline R-wave progression and consider inferior infarct age indeterminate. CT of the chest, abdomen, and pelvis showed a 4.4 cm pancreatic mass consistent with primary adenocarcinoma, greater than 20 liver masses consistent with metastatic disease, splenic infarct, small pulmonary nodules and mild mediastinal lymphadenopathy and a small volume of ascites. It was negative for pulmonary embolism. ED provider spoke with hepatobiliary team at [facility] who indicated that he would not be a candidate for surgery given evidence of metastatic disease and they re commended admission for biopsy and oncology consultation.
[2024-04-23 07:18] LABS: Methylmalonic Acid 139 nmol/L (69-390)
[2024-04-25 14:39] LABS: Soluble Transferrin Receptor 1.47 mg/L (0.76-1.76)
== END 2024-04-22 13:50 | disposition home or self-care (01) | DRG 423 ==
LOC: ANHED 17:16 → ANH3MEDSUR 17:26
PROVIDERS: General Practice; Nurse Practitioner Family; Physician Assistant; Surgery; Admitting Provider Internal Medicine; Emergency Provider Physician Assistant; PCP Internal Medicine; Visit Provider General Practice
PROC: 02HV33Z Insertion of Infusion Device into Superior Vena Cava, Percutaneous Approach (ICD-10-PCS; principal; 2024-04-21 10:00)
DX: C25.9 Malignant neoplasm of pancreas, unspecified (principal); I81 Portal vein thrombosis; C78.7 Secondary malignant neoplasm of liver and intrahepatic bile duct; D73.5 Infarction of spleen; D50.9 Iron deficiency anemia, unspecified; E11.9 Type 2 diabetes mellitus without complications; E86.0 Dehydration; G47.00 Insomnia, unspecified; I10 Essential (primary) hypertension; M19.90 Unspecified osteoarthritis, unspecified site; R59.1 Generalized enlarged lymph nodes; R91.8 Other nonspecific abnormal finding of lung field; Z79.82 Long term (current) use of aspirin; Z79.84 Long term (current) use of oral hypoglycemic drugs; Z79.85 Long-term (current) use of injectable non-insulin antidiabetic drugs; E78.5 Hyperlipidemia, unspecified; Z90.49 Acquired absence of other specified parts of digestive tract; Z20.822 Contact with and (suspected) exposure to COVID-19
CPT/HCPCS: 36415; 47000; 71275; 74177; 77001; 80048; 80053; 81001; 82040; 82607; 82728; 82746; 82948; 83540; 83550; 83605; 83690; 83735; 83921; 83930; 83935; 84145; 84238; 84300; 84484; 85025; 85027; 85380; 85610; 85730; 86301; 87040; 87637; 88307; 88312; 88313; 88342; 93005; 93306; 93970; 93978; 96361; 96374; 96375; 99285; A9270; C1788; G0378; J0690; J1644; J1650; J1756; J1815; J2250; J2270; J2405; J2704; J3010; J7030; J7050; Q9967

== ENCOUNTER 2024-04-28 15:03 | Outpatient (CLI) | payer BC, SELFPAY ==
[2024-04-28 16:39] LABS: Ammonia 54 umol/L (9-30)
[2024-04-28 16:40] LABS: Hematocrit 35.6 % (42.0-52.0); Hemoglobin 11.1 g/dL (14.0-18.0); Mean Corpuscular HGB Conc 31.2 g/dl (32-36); Mean Corpuscular Hemoglobin 25.2 pg (26-34); Mean Corpuscular Volume 80.9 fl (80-100); Mean Platelet Volume 11.1 fl (7.4-10.4); Platelet Count Result 307 k/mm3 (150-375); Red Cell Distribution Width 17.6 % (11.5-14.5); White Blood Count 21.1 K/mm3 (4.5-10.0)
[2024-04-28 16:51] LABS: Prothrombin Time 49.2 Seconds (11.1-14.7)
[2024-04-28 17:29] LABS: Band Neutrophils Percent 4 % (0-6); Eosinophils Absolute Manual 0.21 K/mm3 (0.02-0.50); Eosinophils Percent Manual 1 % (0-4); Lymphocytes Absolute Manual 1.68 K/mm3 (1.1-4.5); Monocytes Absolute Manual 0.84 K/mm3 (0.1-0.90); Monocytes Percent Manual 4 % (3-9); Neutrophils Absolute Manual 18.35 K/mm3 (1.3-6.7); Neutrophils Percent Manual 83 % (46-73); Platelet Estimate Adequate (Adequate); Total Cells Counted 100
[2024-04-28 17:30] LABS: Anisocytosis 2+; Hypochromasia 1+; Schistocytes None Seen
[2024-04-28 17:46] LABS: Alanine Aminotransferase 218 U/L (6-50); Albumin Level 2.7 g/dL (3.5-5.1); Alkaline Phosphatase 953 U/L (38-126); Anion Gap 19 mmol/L (4-12); Bilirubin,Total 3.8 mg/dL (0.2-1.3); Blood Urea Nitrogen 60 mg/dL (9-20); Calcium 7.2 mg/dL (8.4-10.2); Carbon Dioxide 16 mmol/L (22-30); Chloride 80 mmol/L (98-107); Estimated Glomerular Filt Rate 16; Glucose 226 mg/dL (65-110); Potassium 5.4 mmol/L (3.4-5.0); Sodium 115 mmol/L (137-145)
[2024-04-28 17:47] LABS: Aspartate Amino Transferase 877 U/L (17-59)
[2024-04-28 17:51] LABS: INR 5.3
[2024-04-28 22:15] LABS: Ferritin > 2000.00 ng/mL (11.1-264)
== END 2024-04-28 15:04 | disposition home or self-care (01) ==
LOC: ANHGOSHLAB 15:05
PROVIDERS: PCP Internal Medicine; Visit Provider Internal Medicine
DX: C25.9 Malignant neoplasm of pancreas, unspecified (principal); D64.9 Anemia, unspecified; I81 Portal vein thrombosis; Z79.01 Long term (current) use of anticoagulants
CPT/HCPCS: 36415; 80053; 82140; 82728; 85025; 85610